=== PATIENT | male | born 1930 ===

== ENCOUNTER 2021-04-04 10:45 | Inpatient (IN) ==
[2021-04-04] MEDS ORDERED: ONDANSETRON 4 MG/2 ML VIAL ONE ×2 (11:27→16:30)
[2021-04-04] MEDS ORDERED: 0.9 % SODIUM CHLORIDE 250 ML IV SCH ×4 (11:30→20:00)
--- NOTE | 2021-04-04 11:39 | Emergency Department Note ---
Syncope HPI General Chief Complaint: Syncope Stated Complaint: Syncopal episode Time Seen by Provider: 04/04/21 10:52 Source: patient and EMS Mode of arrival: EMS History of Present Illness HPI Narrative: Patient is an 89-year-old gentleman who arrives emergency department by ambulance accompanied by his son-in-law complaining of syncope. History is provided by the patient and his son-in-law. He says he fell last night but cannot remember why. All he knows is he woke up lying on the ground with a chair on top of him. He laid on the ground for several hours but does not think he suffered any significant injuries. Currently, he feels very lightheaded and this is worse whenever he sits up. He also developed nausea and vomiting upon arrival to the emergency department. His son-in-law notes he had similar symptoms when he had gastrointestinal bleeding several years ago. He has not recently had any diarrhea or blood in his stool. He denies any associated abdominal pain. Related Data Home Medications Medication Instructions Recorded Confirmed atenolol 50 mg PO DAILY 04/04/21 04/04/21 isosorbide mononitrate 60 mg PO DAILY 04/04/21 04/04/21 lovastatin 40 mg PO QDAY 04/04/21 04/04/21 tamsulosin 0.8 mg PO DAILY 04/04/21 04/04/21 Allergies Allergy/AdvReac Type Severity Reaction Status Date / Time hydrocodone Allergy Unknown HIVES Verified 04/04/21 12:53 Review of Systems ROS ROS Narrative: Narrative: All systems ED: reviewed and negative except as stated. Constitutional: Denies fever and chills Cardiovascular: Denies chest pain Respiratory: Denies shortness of breath and cough PFSH Narrative Patient History Narrative: Patient is and lives by himself. Social History Smoking Status: Never smoker Alcohol Intake Frequency: does not drink Exam Narrative Narrative: I reviewed the vital signs. Gen -patient is awake and alert and in no acute distress. The patient is well groomed. He is actively vomiting dark red emesis. HEENT -there is a patch of ecchymosis over the patient's left temporal region without palpable underlying bony deformity. There is conjunctival pallor. Mucous membranes are dry. CV -S1-S2 regular rate and rhythm. Peripheral pulses are palpable. There is no JVD. Resp -breathing is nonlabored. Lungs are clear to auscultation bilaterally. T here is no cyanosis. GI - Abdomen is soft and nontender to palpation. There is no guarding or rebou nd tenderness. Derm -skin is warm and dry. There is no visible rash. MSK -present extremities are atraumatic. There is moderate tenderness to palpation of the mid lumbar region without any palpable underlying bony deformity. There is no tenderness to palpation of the cervical or thoracic spine. Psych -patient has appropriate affect. The patient does not appear internally stimulated. Neuro -patient answers questions appropriately with fluent speech. Patient moves all present extremities equally. Course Vital Signs Vital signs: Vital Signs Temperature 97.7 F 04/04/21 10:48 Pulse Rate 87 04/04/21 10:48 Respiratory Rate 18 04/04/21 10:48 Blood Pressure 108/62 04/04/21 10:48 Pulse Oximetry (%) 98 04/04/21 10:48 Temperature 97.7 F 04/04/21 10:48 Pulse Rate 90 04/04/21 14:47 Respiratory Rate 14 04/04/21 14:47 Blood Pressure 101/62 04/04/21 14:46 Pulse Oximetry (%) 97 04/04/21 14:47 MDM MDM Narrative Medical decision making narrative: Patient presents with generalized weakness and syncope. CT scans of the brain and lumbar spine do not reveal any traumatic findings. Given the patient's vomiting and dilated loops of large bowel noted by radiology staff while preparing for his lumbar spine CT, I obtained a CT of the abdomen and pelvis. This revealed severely distended large bowel consistent with a large bowel obstruction. I discussed the test results with the patient and his son. I also spoke with Dr. Beckford from general surgery. He will evaluate the patient in the emergency department. He would like type and screen for 2 units of packed red blood cells and initiate antibiotic therapy with Zosyn. Dr. Beckford evaluated the patient in person. 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 He plans to take the patient to the operating room for operative treatment. Lab Data Lab results reviewed: Yes I reviewed the patient's lab results. Result diagrams: 04/04/21 11:28 Labs: Lab Results 04/04/21 04/04/21 04/04/21 Range/Units 11:28 11:28 12:16 WBC 15.5 H (4.5-11.0) K/mcL RBC 3.05 L (4.63-6.08) M/mcL Hgb 9.9 L (13.7-17.5) g/dL Hct 30.0 L (40.1-51.0) % POC Hct 28 L (41-55) % MCV 98.4 (80.0-100.0) fL MCH 32.5 (26.0-34.0) pg MCHC 33.0 (31.0-36.0) g/dL RDW 13.3 (11.5-14.5) % Plt Count 154 (140-440) K/mcL MPV 9.8 (7.4-10.4) fL Neut % (Auto) 76.9 (38.0-78.0) % Lymph % (Auto) 17.0 (15.5-49.0) % [place] % (Auto) 5.8 (1.0-12.0) % Eos % (Auto) 0 (0.0-7.0) % Baso % (Auto) 0.3 (0.0-2.0) % Lymph # (Auto) 2.63 (1.50-4.80) K/mcL [place] # (Auto) 0.90 (0.10-0.90) K/mcL Eos # (Auto) 0 (0.00-0.70) K/mcL Baso # (Auto) 0.04 (0.00-0.30) K/mcL Absolute Neutrophils 11.91 H (1.80-8.00) K/mcL POC PT 16.6 H (11.9-14.5) sec POC INR 1.4 H (0.8-1.2) POC Sodium 143 (133-145) mEq/L POC Potassium 5.2 H (3.3-5.1) mEql/L POC Chloride 110 H (96-108) mEq/L POC Total CO2 22 (22-30) mmol/L POC BUN 63 H (6-20) mg/dL POC Creatinine 1.5 H (0.6-1.2) mg/dL POC Glucose 111 H (70-105) mg/dL POC WB Ioniz Calcium 1.19 (1.16-1.32) mmEq/L Total Creatine Kinase 115 (24-195) U/L ED POC Tests ED POC Tests: KATRIN - SARS Antigen Negative EKG Data EKG #1: EKG attestation: Yes I reviewed and interpreted this EKG. EKG results narrative: EKG performed at 11:11 AM: Atrial fibrillation, rate 88. Normal QRS and QTc duration. Normal QRS morphology. T waves are diffusely flattened. No ST segment deviation. No old EKG immediately available for comparison. EKG interpreted by me Discharge Plan Patient/Caregiver Discharge Instructions Pt seen by ADDING MACHINE OPERATOR/PA only: No Prescriptions: No Action lovastatin 40 mg Tablet 40 mg PO QDAY RF: 0 isosorbide mononitrate 60 mg tablet extended release 24 hr 60 mg PO DAILY RF: 0 tamsulosin 0.4 mg capsule 0.8 mg PO DAILY RF: 0 atenolol 50 mg tablet 50 mg PO DAILY RF: 0
[2021-04-04] MEDS ORDERED: ONDANSETRON 4 MG/2 ML VIAL IV ONE (11:41)
[2021-04-04 11:54] LABS: POC Blood Urea Nitrogen 63 mg/dL (6-20); POC CO2 22 mmol/L (22-30); POC Calcium, Ionized 1.19 mmEq/L (1.16-1.32); POC Chloride 110 mEq/L (96-108); POC Creatinine 1.5 mg/dL (0.6-1.2); POC Glucose, Random 111 mg/dL (70-105); POC Hematocrit 28 % (41-55); POC Potassium 5.2 mEql/L (3.3-5.1); POC Sodium 143 mEq/L (133-145)
[2021-04-04 12:16] LABS: Basophils # (Auto) 0.04 K/mcL (0.00-0.30); Basophils % (Auto) 0.3 % (0.0-2.0); Eosinophils # (Auto) 0 K/mcL (0.00-0.70); Eosinophils % (Auto) 0 % (0.0-7.0); Hemoglobin 9.9 g/dL (13.7-17.5); Lymphocytes # (Auto) 2.63 K/mcL (1.50-4.80); Mean Cell Volume 98.4 fL (80.0-100.0); Mean Platelet Volume 9.8 fL (7.4-10.4); Monocytes % (Auto) 5.8 % (1.0-12.0); Neutrophils % (Auto) 76.9 % (38.0-78.0); Platelet Count 154 K/mcL (140-440); RBC 3.05 M/mcL (4.63-6.08); Red Cell Distribution Width 13.3 % (11.5-14.5); WBC 15.5 K/mcL (4.5-11.0)
[2021-04-04 12:21] LABS: POC INR 1.4 (0.8-1.2); POC Pro Time 16.6 sec (11.9-14.5)
[2021-04-04] MEDS ORDERED: LACTATED RINGERS 1,000 ML IV ONE (12:25)
[2021-04-04 12:39] LABS: Creatine Kinase 115 U/L (24-195)
[2021-04-04] MEDS ORDERED: PIPERACILLIN SODIUM/TAZOBACTAM 4.5 GM in DEXTROSE 5% IN WATER 50 ML IV ONE (13:04)
--- NOTE | 2021-04-04 14:39 | Cat Scan Report ---
History: Multiple recent syncopal episodes and falls, patient takes a baby aspirin daily TECHNIQUE: The head was imaged without contrast in axial plane at 2.5 mm intervals. Sagittal and coronal reformats were created. The radiation exposure was limited using dose reduction technology. FINDINGS: There is moderate atrophy in the frontal lobes with milder atrophy throughout the remainder of the brain. There is no evidence of infarct, hemorrhage or mass effect. The ventricles are normal allowing for the atrophy. There is no abnormal extra-axial fluid collection. Bone windows show no skull fracture. There is a large densely calcified plaque in the right vertebral artery at the foramen magnum. No scalp hematoma is present. The visualized portions of the orbits and sinuses are normal. IMPRESSION: Moderate atrophy and no evidence of acute head injury Dr. Velez was called with the report at 12:15 Interpreted and Authenticated by: Luis Miguel Spangler 04/04/21
--- NOTE | 2021-04-04 14:50 | Cat Scan Report ---
History: Recent falls with syncopal episodes, vomiting coffee-ground emesis, diarrhea TECHNIQUE: The patient was imaged without contrast in axial plane at 2.5 mm intervals. Sagittal and coronal reformats were created. The radiation exposure was limited using dose reduction technology area FINDINGS: There is mild interstitial lung disease in both lung bases. This may be a combination of fibrosis and inflammation. No pleural effusion is present. There has been a prior sternotomy with coronary bypass surgery. The heart is mildly enlarged. Evaluation the abdominal organs without contrast is limited. The liver and spleen are normal in size and homogeneous. There is no apparent mass or inflammation in the pancreas. The adrenals are normal. There are several cysts in both kidneys. The largest is an exophytic cyst at the lower pole left kidney which measures 6.5 cm. No solid mass is identified. There is no kidney stone or hydronephrosis. Moderate amount calcified plaque is present along the wall of normal caliber abdominal aorta and iliac arteries. Inferior vena cava is normal. There is a large amount of fluid and ingested material within the stomach. The wall the stomach does not appear to be thickened the duodenum and small intestine are normal in caliber. The large intestine is very elongated and abnormally dilated. The transverse colon measures up to 14.5 cm in craniocaudal dimension. Large amount stool is present in the ascending colon. The descending colon is decompressed. The elongated sigmoid colon becomes dilated in the epigastrium and is difficult to clearly separate the distended sigmoid colon from the transverse colon. No twist is seen in the mesentery. The wall of the1 dilated and large intestine is not thickened or inflamed and there is no gas within the wall. No free intraperitoneal air or ascites are present. There is no abscess. No mass is seen on this nonenhanced study. Urinary bladder is normal. Prostate is mildly enlarged. Bone windows reveal mild arthritis throughout the thoracic and lumbar spine. There is no fracture or destructive bone lesion. IMPRESSION: Abnormally dilated large bowel in the epigastrium. This appears to be a combination of severely dilated transverse colon and moderately dilated and elongated sigmoid colon. Patient is at high risk of perforated bowel based upon the caliber of the large intestine. No mass is seen to explain the obstruction. This could be a volvulus. Toxic megacolon is possible but I would expect to see more thickening of the wall of the intestine. Dr. Velez was called with the report at 12:15 PM Interpreted and Authenticated by: Luis Miguel Spangler 04/04/21
--- NOTE | 2021-04-04 15:03 | General Surg History&Physical ---
HPI History of Present Illness Patient information: Note initiated : 04/04/21 at 2:57 pm Service Date, if different from initiated Date: [] Patient: Jericho Cotsa a 89 y/o M admitted on for Syncopal episode. Chief Complaint: [] Chief complaint: Cecal volvulus with colonic obstruction History of present illness: Mr. Costa is a 89 year old M admitted via the emergency room with findings of cecal volvulus with colonic obstruction and massively dilated cecum. The patient has had some type of intestinal problem for quite some time. He gives a history of having bowel obstruction a few years ago and underwent colonoscopy by Dr. Euceda. He had successful resolution of the volvulus of the descending colon by colonoscopy. His been stable in the interim. He has had regular bowel movements. He denies severe abdominal pain. He had nausea and vomiting in the emergency room but states that he feels better at this time. CT shows dilated stomach and some right colon. the patient and his son in law are counseled for extended right colectomy. Constitutional Constitutional: Present frequent falls, malaise and weight loss Cardiovascular Cardiovascular: Present lightheadedness and syncope; Absent chest pain, claudication and dyspnea on exertion Respiratory Respiratory: Present dyspnea on exertion Gastrointestinal Gastrointestinal: Present abdominal pain, belching, change in bowel habits, dyspepsia, heartburn and loose stools Genitourinary Genitourinary: change in urinary stream, difficulty urinating and nocturia Musculoskeletal Musculoskeletal: Present abnormal gait, arthralgias, back pain, muscle cramps and myalgias Integumentary Integumentary: Present new lesions and unusual bruising Neurological Neurological: Present abnormal hearing, dizziness and syncope; Absent tremor(s) and vertigo Psychiatric Psychiatric: Absent depression and mood swings Endocrine Endocrine: Present fatigue Hematologic/Lymphatic Hematologic/Lymphatic: Present easy bruising; Absent easy bleeding and lymphadenopathy Allergic/Immunologic Allergic/Immunologic: Absent tongue swelling, throat swelling, uticaria, wheezing and lip swelling PFSH PFSH All Active Problems (Updated 04/04/21 @ 15:18 by Laurel Beckford MD) Primary chronic pseudo-obstruction of colon (Acute) History of coronary artery disease (Acute) Cecal volvulus (Acute) Syncope (Acute) Medical History (Updated 04/04/21 @ 15:18 by Laurel Beckford MD) Coronary artery disease involving coronary bypass graft Social History (Updated 04/04/21 @ 15:14 by Laurel Beckford MD) household members: alone housing: house marital status: occupational status: retired physical activity: walking frequency: 3-4 times per week duration: 15-30 minutes/day smoking status: Never smoker alcohol intake frequency: does not drink substance use type: does not use MEDS/ALLERGIES Home Medications and Allergies Home Medications Medication Instructions Recorded Confirmed Type atenolol 50 mg PO DAILY 04/04/21 04/04/21 History isosorbide mononitrate 60 mg PO DAILY 04/04/21 04/04/21 History lovastatin 40 mg PO QDAY 04/04/21 04/04/21 History tamsulosin 0.8 mg PO DAILY 04/04/21 04/04/21 History Allergies Allergy/AdvReac Type Severity Reaction Status Date / Time hydrocodone Allergy Unknown HIVES Verified 04/04/21 12:53 Physical Examination Vital Signs Vital signs: Temp Pulse Resp BP Pulse Ox 97.7 F 90 14 101/62 97 04/04/21 10:48 04/04/21 14:47 04/04/21 14:47 04/04/21 14:46 04/04/21 14:47 General physical appearance General physical exam: no distress, moderate pain, cachectic and chronically ill Eyes Eye exam: PERRL and normal ocular movement ENT ENT exam: other (Edentulous) Head Head exam IM: Present atraumatic, normal inspection and normocephalic Head exam expanded IM: Present contusion Neck Neck exam: no masses, no bruits, trachea midline, no lymphadenopathy and no venous distension Cardiovascular Cardiovascular exam IM: Present normal rate and rhythm, RRR, +S1 and +S2 Respiratory Respiratory exam: normal expansion, normal respiratory effort and clear to auscultation Abdomen Abdomen: Present tender (Mild tenderness across upper abdomen), bowel sounds (high pitched) and distended Integumentary Integumentary: Present no rash, no growths and no abnormal pigmentation Neurologic Neurologic: Present normal coordination and normal sensation Musculoskeletal Musculoskeletal: Present normal gait and normal posture Psychiatric Psychiatric: Present oriented to time, oriented to person, oriented to place, speech is normal and memory intact Results Labs Result diagrams: 04/04/21 11:28 Labs: Abnormal lab results 04/04/21 04/04/2121 Range/Units 11:28 11:28 12:16 WBC 15.5 H (4.5-11.0) K/mcL RBC 3.05 L (4.63-6.08) M/mcL Hgb 9.9 L (13.7-17.5) g/dL Hct 30.0 L (40.1-51.0) % POC Hct 28 L (41-55) % Absolute Neutrophils 11.91 H (1.80-8.00) K/mcL POC PT 16.6 H (11.9-14.5) sec POC INR 1.4 H (0.8-1.2) POC Potassium 5.2 H (3.3-5.1) mEql/L POC Chloride 110 H (96-108) mEq/L POC BUN 63 H (6-20) mg/dL POC Creatinine 1.5 H (0.6-1.2) mg/dL POC Glucose 111 H (70-105) mg/dL All other labs normal. A/P Assessment and plan (1) Primary chronic pseudo-obstruction of colon: Status: Acute (2) Cecal volvulus: Status: Acute (3) History of coronary artery disease: Status: Acute (4) Syncope: Status: Acute Narrative A/P Narrative: Patient and his son-in-law are counseled for urgent extended colectomy with primary anastomosis this will be performed later today Time Spent With Patient Time: Total time spent is greater than 50% in coordination of care (as documented) at patient's floor/unit and/or counseling patient:
--- NOTE | 2021-04-04 15:18 | XRay Report ---
HISTORY: Preop for bowel obstruction FINDINGS: Interstitial fibrosis is present in both lungs. This has progressed since a prior x-ray done on 01/27/13. No consolidating infiltrate is present. There is no mass. The heart is mildly enlarged and has increased in size since 2012. The pulmonary vessels, best seen in the upper lobes appear normal. There has been a prior sternotomy performed. There are several abnormally dilated loops of bowel in the epigastrium. No free intraperitoneal air is present. IMPRESSION: Moderate pulmonary fibrosis and mild cardiomegaly Interpreted and Authenticated by: Luis Miguel Spangler 04/04/21
[2021-04-04 15:22] LABS: Appearance,Urine CLEAR (Clear); Bilirubin,Urine Negative (Negative); Color,Urine YELLOW; Culture Indicated,Urine No; Glucose,Urine (UA) Negative (Negative); Ketones,Urine 20 mg/dL (Negative); Leukocyte Esterase,Urine Negative /uL (Negative); Mucus,Urine FEW /hpf; Nitrate,Urine Negative (Negative); Protein,Urine Negative (Negative); Specific Gravity,Urine 1.021 (1.000-1.035); Urine Blood Negative (Negative); Urine Hyaline Cast 3 /lph (0-2); Urine RBC < 1 /hpf (0-3); Urine Squamous Epithelial Cell 0 /hpf (0-4); Urine WBC 1 /hpf (0-4); Urobilinogen,Urine Negative
[2021-04-04] MEDS ORDERED: SUGAMMADEX SODIUM 200 MG/2 ML VIAL IV ONE (16:30)
[2021-04-04] MEDS ORDERED: ROCURONIUM 10 MG/ML ML IV ONE (16:30)
[2021-04-04] MEDS ORDERED: EPINEPHrine 1 MG/ML AMPUL ONE (16:30)
[2021-04-04] MEDS ORDERED: SUCCINYLCHOLINE 20 MG/ML ML IV ONE (16:30)
[2021-04-04] MEDS ORDERED: GLYCOPYRROLATE 0.2 MG/ML VIAL IV ONE (16:30)
[2021-04-04] MEDS ORDERED: fentaNYL 250 MCG/5 ML VIAL IV ONE (16:30)
[2021-04-04] MEDS ORDERED: MAGNESIUM SULFATE 2 GM/50 ML BAG IV ONE (16:30)
[2021-04-04] MEDS ORDERED: KETAMINE 50 MG/ML Syringe (ANEST) IV ONE (16:30)
[2021-04-04] MEDS ORDERED: LIDOCAINE HCL/PF 100 MG/5 ML SYRINGE IV ONE (16:30)
[2021-04-04] MEDS ORDERED: DEXAMETHASONE 10 MG/ML VIAL ONE (16:30)
[2021-04-04] MEDS ORDERED: PROPOFOL 200 MG/20 ML VIAL IV ONE (16:30)
[2021-04-04] MEDS ORDERED: PHENYLephrine 1 MG/10 ML SYRINGE (ANEST) ONE (16:30)
[2021-04-04] MEDS ORDERED: ACETAMINOPHEN 1,000 MG/100 ML BAG IV ONE (18:41)
[2021-04-04] MEDS ORDERED: METHOCARBAMOL 1,000 MG/10 ML VIAL IV PRN (18:41)
[2021-04-04] MEDS ORDERED: ONDANSETRON 4 MG/2 ML VIAL IV PRN ×3 (18:41→20:00)
[2021-04-04] MEDS ORDERED: LACTATED RINGERS 250 ML IV PRN (18:41)
[2021-04-04] MEDS ORDERED: fentaNYL 100 MCG/2 ML VIAL IV PRN (18:41)
[2021-04-04] MEDS ORDERED: IPRATROPIUM/ALBUTEROL 3 ML AMPUL.NEB NEB PRN (18:41)
[2021-04-04] MEDS ORDERED: BENZOCAINE/MENTHOL 1 LOZENGE PO PRN (18:41)
[2021-04-04] MEDS ORDERED: FLUMAZENIL 0.1 MG/ML ML IV PRN (18:41)
[2021-04-04] MEDS ORDERED: METOPROLOL TARTRATE 5 MG/5 ML VIAL IV PRN (18:41)
[2021-04-04] MEDS ORDERED: LABETALOL 5 MG/ML ML IV PRN (18:41)
[2021-04-04] MEDS ORDERED: NALOXONE HCL 0.4 MG/ML VIAL IV PRN (18:41)
[2021-04-04] MEDS ORDERED: LACTATED RINGERS 1,000 ML IV SCH (18:45)
--- NOTE | 2021-04-04 19:15 | Brief Operative Note ---
Brief Operative Note Date of procedure: 04/04/21 Pre-op diagnosis: CHRONIC COLONIC PSEUDOOBSTRUCTION WITH RIGHT COLON AND TRANS VERSE COLON VOL Post-op diagnosis: other (COLONIC PSEUDOOBSTRUCTION WITH RIGHT COLON AND TRANSVERSE COLON VOLVULUS) Procedure: SUBTOTAL COLECTOMY WITH ILEO-SIGMOID ANASTOMOSIS Grafts/Implants: No Anesthesia: GETA Findings: DILATED COLON FROM CECUM TO DISTAL SIGMOID COLON WITH VOLVULUS INVOLVING RIGHT ,TRANSVERSE AND DESCENDING COLON AND MILD DILATIONOF DISTAL SIGMOID AND RECTUM Complications: none Surgeon: Laurel Beckford Estimated blood loss (cc): 150 Specimens Removed/Pathology: other (SUBTOTAL COLON DOWN TO MID SIGMOID) Condition: stable Disposition: PACU
[2021-04-04] MEDS ORDERED: ACETAMINOPHEN 1,000 MG/100 ML BAG IV SCH (20:00)
[2021-04-04] MEDS: 0.9 % SODIUM CHLORIDE 1,000 ML IV SCH (20:08)
[2021-04-04] MEDS: 0.9 % SODIUM CHLORIDE 10 ML SYRINGE IV SCH (20:09)
[2021-04-04] MEDS: PIPERACILLIN SODIUM/TAZOBACTAM 2.25 GM in DEXTROSE 5% IN WATER 50 ML IV SCH (23:40)
[2021-04-04] MEDS: HYDROmorphone 0.5 MG/0.5 ML SYRINGE IV PRN (23:48)
[2021-04-05] MEDS: ACETAMINOPHEN 1,000 MG/100 ML BAG IV SCH ×4 (00:13→21:42)
[2021-04-05] MEDS: 0.9 % SODIUM CHLORIDE 1,000 ML IV SCH ×3 (05:09→18:52)
[2021-04-05] MEDS: PIPERACILLIN SODIUM/TAZOBACTAM 2.25 GM in DEXTROSE 5% IN WATER 50 ML IV SCH ×4 (05:29→23:26)
[2021-04-05] MEDS: 0.9 % SODIUM CHLORIDE 10 ML SYRINGE IV SCH ×4 (05:30→23:28)
[2021-04-05 06:51] LABS: Hematocrit 23.4 % (40.1-51.0); Hemoglobin 7.9 g/dL (13.7-17.5); Mean Cell Volume 96.7 fL (80.0-100.0); Mean Corpuscular HGB Conc 33.8 g/dL (31.0-36.0); Mean Platelet Volume 9.8 fL (7.4-10.4); Platelet Count 129 K/mcL (140-440); RBC 2.42 M/mcL (4.63-6.08); Red Cell Distribution Width 13.7 % (11.5-14.5)
[2021-04-05 06:58] LABS: ALT/SGPT 9 U/L (<40); AST/SGOT 24 U/L (<40); Albumin 2.7 gm/dL (3.2-5.2); Albumin/Globulin Ratio 1.2 (1.0-2.3); Alkaline Phosphatase 63 U/L (39-117); Bilirubin,Direct 0.2 mg/dL (<0.3); Bilirubin,Total 0.5 mg/dL (0.1-1.0); Blood Urea Nitrogen 49 mg/dL (8-23); Calcium 7.9 mg/dL (8.6-10.4); Carbon Dioxide 20 mmol/L (22-30); Chloride 111 mmol/L (96-108); Globulin 2.3 gm/dL (2.2-3.7); Glomerular Filtration Rate 53; Glucose 151 mg/dL (70-105); Lactate Dehydrogenase 213 U/L (135-225); Phosphorous 2.6 mg/dL (2.5-4.5); Triglycerides 81 mg/dL (<150); Uric Acid 4.3 mg/dL (2.5-8.0)
--- NOTE | 2021-04-05 09:08 | EKG ---
[facility] Test Date: 2021-04-04 Pat Name: Jericho Costa Department: ED Room: Gender: Male [employer] Professional: : 1930 Requested By: Jorge Velez Order Number: [id number] Reading MD: Stef Reveles Measurements Intervals [place] Rate: 88 P: MI: QRS: -10 QRSD: 96 T: 199 QT: 376 QTc: 455 Interpretive Statements ATRIAL FIBRILLATION, V-RATE 68-101 NONSPECIFIC T ABNORMALITIES, DIFFUSE LEADS Electronically Signed On 04-05-2021 9:07:45 PDT by Stef Reveles /store/M0/[id number]/[email or web address]/[id number].pdf
[2021-04-05 09:24] LABS: Hypochromasia FEW (None Seen); Lymphocytes % 3 % (15-49); Platelet Estimate DECREASED (Normal); RBC Morphology ABNORMAL (Normal); Segmented Neutrophils % 97 % (38-78)
[2021-04-05] MEDS: HYDROmorphone 0.5 MG/0.5 ML SYRINGE IV PRN ×4 (10:57→23:39)
[2021-04-05] MEDS ORDERED: 0.9 % SODIUM CHLORIDE 250 ML IV SCH (11:30)
[2021-04-05] MEDS ORDERED: fentaNYL 100 MCG/2 ML VIAL IV PRN (12:10)
--- NOTE | 2021-04-05 15:26 | General Surgery Progress Note ---
SUBJECTIVE Subjective Patient information: Note initiated : 04/05/21 at 3:21 pm Service Date, if different from initiated Date: [] Patient: Jericho Costa 89 y/o M admitted on 04/04/21 for Syncopal episode. Chief Complaint: [] Principal diagnosis: Colonic pseudoobstruction with volvulus Interval history: Patient has been clinically stable. Vital signs are good. He is somewhat pale and his hemoglobin is down to 7.9. His pain is controlled. He denies nausea and vomiting. BUN 49, creatinine 1.2, white blood count 20,000, hemoglobin 7.9, hematocrit 23.4, platelets 129,000. Constitutional Vitals: Vital Signs Temp Pulse Resp BP Pulse Ox 98.3 F 68 18 124/63 99 04/05/21 12:00 04/05/21 12:00 04/05/21 12:00 04/05/21 08:00 04/05/21 12:00 Period Temp Pulse Resp BP Sys/Farias Pulse Ox Last 24 Hr 97.2 F-99.8 F 64-88 9-20 79-127/38-83 94-100 Intake and Output 04/05/21 04/05/21 04/05/21 05:59 13:59 21:59 Intake Total 1150 1025 Output Total 600 Balance 550 1025 Weight 172 lb 6.4 oz Patient Weight 04/06/21 05:59 Weight 172 lb 6.4 oz Intake & Output: Intake & Output 04/05/21 04/05/21 04/05/21 05:59 13:59 21:59 Intake Total 1150 1025 Output Total 600 Balance 550 1025 Weight 172 lb 6.4 oz Intake: IV 1150 1025 Sodium Chloride 0.9% 1,000 ml @ 1000 875 125 mls/hr IV .Q8H DANE Rx#: [id number] Zosyn 2.25 gm In Dextrose 5% in 50 50 Water 50 ml @ 100 mls/hr IV Q6H DANE Rx#:[id number] Output: Gastric Drainage 100 NG/OG 100 Urine Catheter Amount 500 Other: Urine Appearance Clear Urine Color Dark Yellow Head Head exam: Present atraumatic and normal inspection Eye Eye exam: Present EOMI, normal appearance and PERRL ENT ENT exam: Present mucous membranes dry and normal external ear exam Additional comments: Mucosa is dry Neck Neck exam: Present full ROM and normal inspection; Absent tenderness Respiratory Respiratory exam: Present normal respiratory exam and CTAB Cardiovascular Cardiovascular exam: Present normal rate and rhythm, RRR, +S1 and +S2; Absent gallop and JVD GI/Abdominal GI/Abdominal exam: Present normal bowel sounds, soft and hypoactive bowel sounds Additional comments: Incision is healing nicely Extremities Exam Extremities exam: Present full ROM and neurovascular intact; Absent pedal edema Back Exam Back exam: Present full ROM and normal inspection Neurological Exam Neurological exam: Present alert and oriented X3 Psychiatric Psychiatric exam: Present normal affect and normal mood A/P Assessment and plan (1) Primary chronic pseudo-obstruction of colon: Status: Acute (2) Cecal volvulus: Status: Acute (3) History of coronary artery disease: Status: Acute (4) Postoperative anemia due to acute blood loss: Status: Acute Narrative A/P Narrative: Prerenal azotemia is improved Will transfuse 2 units of packed red cells Continue IV antibiotics Check CBC and inpatient panel in the morning Time Spent With Patient Time: Total time spent is greater than 50% in coordination of care (as documented) at patient's floor/unit and/or counseling patient:
[2021-04-06] MEDS: ACETAMINOPHEN 1,000 MG/100 ML BAG IV SCH ×4 (01:29→19:46)
[2021-04-06] MEDS: HYDROmorphone 0.5 MG/0.5 ML SYRINGE IV PRN ×4 (02:46→16:01)
[2021-04-06] MEDS: 0.9 % SODIUM CHLORIDE 1,000 ML IV SCH ×3 (04:14→23:09)
[2021-04-06] MEDS: 0.9 % SODIUM CHLORIDE 10 ML SYRINGE IV SCH ×3 (06:24→22:00)
[2021-04-06] MEDS: PIPERACILLIN SODIUM/TAZOBACTAM 2.25 GM in DEXTROSE 5% IN WATER 50 ML IV SCH ×4 (06:24→23:08)
[2021-04-06 07:12] LABS: Basophils # (Auto) 0.02 K/mcL (0.00-0.30); Basophils % (Auto) 0.2 % (0.0-2.0); Eosinophils # (Auto) 0 K/mcL (0.00-0.70); Eosinophils % (Auto) 0 % (0.0-7.0); Hematocrit 30.9 % (40.1-51.0); Hemoglobin 10.4 g/dL (13.7-17.5); Lymphocytes % (Auto) 26.1 % (15.5-49.0); Mean Cell Volume 91.4 fL (80.0-100.0); Mean Corpuscular HGB Conc 33.7 g/dL (31.0-36.0); Mean Platelet Volume 9.7 fL (7.4-10.4); Monocytes # (Auto) 0.53 K/mcL (0.10-0.90); Monocytes % (Auto) 4.5 % (1.0-12.0); Neutrophils % (Auto) 69.2 % (38.0-78.0); Platelet Count 113 K/mcL (140-440); RBC 3.38 M/mcL (4.63-6.08); Red Cell Distribution Width 18.1 % (11.5-14.5); WBC 11.9 K/mcL (4.5-11.0)
[2021-04-06 07:34] LABS: ALT/SGPT 12 U/L (<40); AST/SGOT 28 U/L (<40); Albumin 2.8 gm/dL (3.2-5.2); Albumin/Globulin Ratio 1.1 (1.0-2.3); Alkaline Phosphatase 64 U/L (39-117); Bilirubin,Direct 0.3 mg/dL (<0.3); Bilirubin,Total 0.6 mg/dL (0.1-1.0); Blood Urea Nitrogen 37 mg/dL (8-23); Calcium 8.2 mg/dL (8.6-10.4); Carbon Dioxide 21 mmol/L (22-30); Chloride 110 mmol/L (96-108); Globulin 2.6 gm/dL (2.2-3.7); Glomerular Filtration Rate 59; Glucose 97 mg/dL (70-105); Lactate Dehydrogenase 241 U/L (135-225); Phosphorous 1.9 mg/dL (2.5-4.5); Triglycerides 108 mg/dL (<150); Uric Acid 3.1 mg/dL (2.5-8.0)
--- NOTE | 2021-04-06 13:08 | General Surgery Progress Note ---
SUBJECTIVE Subjective Patient information: Note initiated : 04/06/21 at 1:04 pm Service Date, if different from initiated Date: [] Patient: Jericho Costa 89 y/o M admitted on 04/04/21 for Syncopal episode. Chief Complaint: [] Principal diagnosis: Colonic pseudoobstruction with volvulus Interval history: Patient continues to improve. He is still weak and is more alert today and answers questions appropriately. Vital signs are stable. White blood count 11.9, hemoglobin 10.4, hematocrit 30.9, platelets 113,000, potassium 4.1, BUN 37, creatinine 1.1, phosphorus 1.9 Constitutional Vitals: Vital Signs Temp Pulse Resp BP Pulse Ox 97.7 F 69 12 142/76 96 04/06/21 12:19 04/06/21 12:19 04/06/21 08:20 04/06/21 12:19 04/06/21 12:19 Period Temp Pulse Resp BP Sys/Farias Pulse Ox Last 24 Hr 97.0 F-98.3 F 63-70 12-19 105-150/62-79 95-99 Intake and Output 04/05/21 04/06/21 04/06/21 21:59 05:59 13:59 Intake Total 275 1250 150 Output Total 1075 1250 575 Balance -800 0 -425 Weight 175 lb 14.4 oz Intake & Output: Intake & Output 04/05/21 04/06/21 04/06/21 21:59 05:59 13:59 Intake Total 275 1250 150 Output Total 1075 1250 575 Balance -800 0 -425 Weight 175 lb 14.4 oz Intake: IV 275 1250 150 Sodium Chloride 0.9% 1,000 ml @ 125 1000 125 mls/hr IV .Q8H DANE Rx#: [id number] Zosyn 2.25 gm In Dextrose 5% in 50 50 50 Water 50 ml @ 100 mls/hr IV Q6H DANE Rx#:[id number] Output: Gastric Drainage 150 300 NG/OG 150 300 Urine Catheter Amount 607 327 575 Other: Urine Appearance Clear Clear Clear Urine Color Bright Yellow Dark Yellow Bright Yellow Uretheral (Valerio) Bright Yellow Bright Yellow Eye Eye exam: Present EOMI, normal appearance and PERRL ENT ENT exam: Present mucous membranes dry and normal external ear exam Additional comments: Mucosa is dry; edentulous Neck Neck exam: Present full ROM and normal inspection; Absent tenderness Respiratory Respiratory exam: Present normal respiratory exam and CTAB Cardiovascular Cardiovascular exam: Present normal rate and rhythm, RRR, +S1 and +S2; Absent gallop and JVD GI/Abdominal GI/Abdominal exam: Present normal bowel sounds, soft and hypoactive bowel sounds Additional comments: Incision is healing nicely Extremities Exam Extremities exam: Present full ROM and neurovascular intact; Absent pedal edema Neurological Exam Neurological exam: Present alert and oriented X3 Psychiatric Psychiatric exam: Present normal affect and normal mood A/P Assessment and plan (1) Primary chronic pseudo-obstruction of colon: Status: Acute (2) Cecal volvulus: Status: Acute (3) History of coronary artery disease: Status: Acute (4) Postoperative anemia due to acute blood loss: Status: Acute Narrative A/P Narrative: Potassium phosphate rider Out of bed to chair and to ambulate with physical therapy Patient will need SNF and rehab at time of discharge Time Spent With Patient Time: Total time spent is greater than 50% in coordination of care (as documented) at patient's floor/unit and/or counseling patient:
[2021-04-06] MEDS ORDERED: POTASSIUM PHOSPHATE 40 MEQ in DEXTROSE 5% IN WATER 500 ML IV ONE (13:30)
[2021-04-07] MEDS: ACETAMINOPHEN 1,000 MG/100 ML BAG IV SCH ×4 (00:03→19:18)
[2021-04-07] MEDS: HYDROmorphone 0.5 MG/0.5 ML SYRINGE IV PRN ×2 (00:39→21:57)
[2021-04-07] MEDS: 0.9 % SODIUM CHLORIDE 1,000 ML IV SCH ×3 (03:12→19:19)
[2021-04-07] MEDS: PIPERACILLIN SODIUM/TAZOBACTAM 2.25 GM in DEXTROSE 5% IN WATER 50 ML IV SCH ×3 (05:17→17:40)
[2021-04-07] MEDS: 0.9 % SODIUM CHLORIDE 10 ML SYRINGE IV SCH ×3 (05:18→21:58)
[2021-04-07 07:28] LABS: ALT/SGPT 12 U/L (<40); AST/SGOT 25 U/L (<40); Albumin 2.5 gm/dL (3.2-5.2); Alkaline Phosphatase 65 U/L (39-117); Bilirubin,Direct 0.3 mg/dL (<0.3); Bilirubin,Total 0.6 mg/dL (0.1-1.0); Blood Urea Nitrogen 20 mg/dL (8-23); Calcium 7.8 mg/dL (8.6-10.4); Carbon Dioxide 19 mmol/L (22-30); Chloride 113 mmol/L (96-108); Globulin 2.5 gm/dL (2.2-3.7); Glomerular Filtration Rate 76; Glucose 95 mg/dL (70-105); Lactate Dehydrogenase 210 U/L (135-225); Phosphorous 1.7 mg/dL (2.5-4.5); Triglycerides 92 mg/dL (<150); Uric Acid 2.7 mg/dL (2.5-8.0)
[2021-04-07 07:37] LABS: Basophils # (Auto) 0.02 K/mcL (0.00-0.30); Basophils % (Auto) 0.3 % (0.0-2.0); Eosinophils # (Auto) 0 K/mcL (0.00-0.70); Eosinophils % (Auto) 0 % (0.0-7.0); Hematocrit 30.6 % (40.1-51.0); Lymphocytes % (Auto) 42.8 % (15.5-49.0); Mean Cell Volume 93.6 fL (80.0-100.0); Mean Corpuscular HGB Conc 32.7 g/dL (31.0-36.0); Mean Platelet Volume 9.7 fL (7.4-10.4); Monocytes # (Auto) 0.34 K/mcL (0.10-0.90); Monocytes % (Auto) 5.8 % (1.0-12.0); Neutrophils % (Auto) 51.1 % (38.0-78.0); Platelet Count 118 K/mcL (140-440); RBC 3.27 M/mcL (4.63-6.08); Red Cell Distribution Width 17.2 % (11.5-14.5); WBC 5.8 K/mcL (4.5-11.0)
--- NOTE | 2021-04-07 12:55 | Surgical Pathology Report ---
Histology Microscopic Diagnosis Specimen A- COLON, TERMINAL ILEUM AND OMENTUM, SUBTOTAL COLECTOMY AND OMENTECTOMY: --- COLON AND TERMINAL ILEUM: -- TWO SEGMENTS OF DILATED COLON CONSISTENT WITH CLINICAL HISTORY OF VOLVULUS. -- END MARGINS VIABLE. --- OMENTUM: -- NO DIAGNOSTIC ALTERATIONS. 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 Gross Description Received in formalin labeled subtotal colon, is a 150 cm long segment of colon with attached omentum. The colon varies in diameter from from 4 to 10.5 cm. Each end is stapled and the end margins are undesignated. One end margin is narrowed and may represent terminal ileum with adjacent dilated cecum. No appendix is seen. A mild amount of mesenteric adipose tissue is attached. The attached omentum is 43.5 x 10 x 1.5 cm and consists of unremarkable edmonds-yellow, lobulated adipose tissue. The serosal surface of the colon is edmonds-pink, smooth and glistening. A 23 cm long segment of colon dilated up to 10.5 cm starts at the end of the colon adjacent to the possible terminal ileum. Immediately adjacent to this segment is a 20 cm long portion of colon which is not dilated. The remaining colon beyond the undilated colon extending to the opposite end margin is dilated to 10.5 cm. The specimen is opened along its length to reveal a edmonds brown, muddy and pasty fecal material. The mucosa in the dilated regions is flattened and the wall is on average 0.2 cm thick. The mucosa in the non-dilated region has an unremarkable plicated pattern with a wall that is on average 0.4 cm thick. No mucosal mass lesion or polyps are identified. Scattered small lymph nodes, up to 0.5 cm in greatest dimension, are identified within the mesenteric fat. Film Examiner sections are submitted as follows: A1 - end margins; A2 - shorter segment of dilated colon, random; A3 - nondilated segment of colon, random; A4-A5 - longer segment of dilated colon, random; A6 - random omentum; A7 - five intact candidate lymph nodes. (DMT:jose miguel) Electronically Signed Stef Westbrook MD, FCAP Electronically Signed 04/07/2021 12:54
--- NOTE | 2021-04-07 13:15 | General Surgery Progress Note ---
SUBJECTIVE Subjective Patient information: Note initiated : 04/07/21 at 1:08 pm Service Date, if different from initiated Date: [] Patient: Jericho Costa 89 y/o M admitted on 04/04/21 for Syncopal episode. Chief Complaint: [] Principal diagnosis: Colonic pseudoobstruction with volvulus Interval history: patient is clinically stable. he denies nausea.His abdominal pain is controlled with present analgesics.No flatus so far .WBC IS 5.8,HGB10,HCT30.6,K 4.1,BUN 20,CR0.9,PHOS1.7. Constitutional Vitals: Vital Signs Temp Pulse Resp BP Pulse Ox 98.4 F 88 15 125/74 95 04/07/21 11:34 04/07/21 11:34 04/07/21 11:34 04/07/21 11:34 04/07/21 11:34 Period Temp Pulse Resp BP Sys/Farias Pulse Ox Last 24 Hr 97.3 F-99.1 F 69-88 12-22 115-139/66-78 93-99 Intake and Output 04/06/21 04/07/21 04/07/21 21:59 05:59 13:59 Intake Total 1759.0909 1200 1100 Output Total 600 1050 Balance 1159.0909 150 1100 Weight 174 lb 1 oz Intake & Output: Intake & Output 04/06/21 04/07/21 04/07/21 21:59 05:59 13:59 Intake Total 1759.0909 1200 1100 Output Total 600 1050 Balance 1159.0909 150 1100 Weight 174 lb 1 oz Intake: IV 1759.0909 1200 1100 Sodium Chloride 0.9% 1,000 ml @ 1000 1000 1000 125 mls/hr IV .Q8H D[facility] Rx#: [id number] Zosyn 2.25 gm In Dextrose 5% in 50 100 Water 50 ml @ 100 mls/hr IV Q6H [facility] Rx#:[id number] Potassium Phosphate 40 Meq In 509.0909 Dextrose 5% in Water 500 ml @ 127.273 mls/hr IV ONCE ONE Rx#: [id number] Tube Feeding 0 Output: Gastric Drainage 50 350 NG/OG 50 350 Urine Catheter Amount 550 700 Other: Urine Appearance Clear Clear Uretheral (Valerio) Clear Clear Urine Color Dark Yellow Dark Yellow Uretheral (Valerio) Dark Yellow Dark Yellow Urine Odor Strong ENT ENT exam: Present mucous membranes dry Neck Neck exam: Present full ROM and normal inspection Respiratory Respiratory exam: Present normal respiratory exam and CTAB Cardiovascular Cardiovascular exam: Present normal rate and rhythm, irregular rhythm, +S1 and +S2; Absent JVD GI/Abdominal GI/Abdominal exam: Present soft, diminished bowel sounds, distended (MILD DISTENTION) and tenderness (MILD INCISIONAL TENDERNESS) Extremities Exam Extremities exam: Present full ROM and neurovascular intact; Absent pedal edema Neurological Exam Neurological exam: Present alert and oriented X3 Psychiatric Psychiatric exam: Present normal affect and normal mood A/P Assessment and plan (1) Primary chronic pseudo-obstruction of colon: Status: Acute (2) Cecal volvulus: Status: Acute (3) Postoperative anemia due to acute blood loss: Status: Acute Narrative A/P Narrative: CONTINUE ON PRESENT THERAPY REPLACE K PHOSPHATE START PANTOPRAZOLE Time Spent With Patient Time: Total time spent is greater than 50% in coordination of care (as documented) at patient's floor/unit and/or counseling patient:
[2021-04-07] MEDS ORDERED: POTASSIUM PHOSPHATE 40 MEQ in DEXTROSE 5% IN WATER 500 ML IV ONE (13:30)
[2021-04-07] MEDS: PANTOPRAZOLE 40 MG VIAL IV SCH (17:40)
[2021-04-08] MEDS: PIPERACILLIN SODIUM/TAZOBACTAM 2.25 GM in DEXTROSE 5% IN WATER 50 ML IV SCH ×4 (00:10→18:15)
[2021-04-08] MEDS: ACETAMINOPHEN 1,000 MG/100 ML BAG IV SCH ×4 (01:22→19:47)
[2021-04-08] MEDS: 0.9 % SODIUM CHLORIDE 1,000 ML IV SCH ×3 (04:56→21:52)
[2021-04-08] MEDS: 0.9 % SODIUM CHLORIDE 10 ML SYRINGE IV SCH ×3 (05:42→21:53)
[2021-04-08] MEDS: HYDROmorphone 0.5 MG/0.5 ML SYRINGE IV PRN ×2 (05:46→22:48)
[2021-04-08] MEDS: PANTOPRAZOLE 40 MG VIAL IV SCH ×2 (07:08→18:13)
[2021-04-08 08:25] LABS: Basophils # (Auto) 0.02 K/mcL (0.00-0.30); Basophils % (Auto) 0.3 % (0.0-2.0); Eosinophils # (Auto) 0.43 K/mcL (0.00-0.70); Eosinophils % (Auto) 6.2 % (0.0-7.0); Hematocrit 35.1 % (40.1-51.0); Hemoglobin 11.7 g/dL (13.7-17.5); Lymphocytes # (Auto) 2.28 K/mcL (1.50-4.80); Lymphocytes % (Auto) 32.9 % (15.5-49.0); Mean Cell Volume 93.1 fL (80.0-100.0); Mean Corpuscular HGB Conc 33.3 g/dL (31.0-36.0); Mean Platelet Volume 9.3 fL (7.4-10.4); Monocytes # (Auto) 0.41 K/mcL (0.10-0.90); Monocytes % (Auto) 5.9 % (1.0-12.0); Neutrophils % (Auto) 54.7 % (38.0-78.0); Platelet Count 146 K/mcL (140-440); RBC 3.77 M/mcL (4.63-6.08); Red Cell Distribution Width 16.4 % (11.5-14.5); WBC 6.9 K/mcL (4.5-11.0)
[2021-04-08 08:30] LABS: ALT/SGPT 14 U/L (<40); AST/SGOT 30 U/L (<40); Albumin 2.8 gm/dL (3.2-5.2); Albumin/Globulin Ratio 0.9 (1.0-2.3); Alkaline Phosphatase 113 U/L (39-117); Bilirubin,Direct 0.4 mg/dL (<0.3); Bilirubin,Total 0.8 mg/dL (0.1-1.0); Blood Urea Nitrogen 13 mg/dL (8-23); Calcium 8.6 mg/dL (8.6-10.4); Carbon Dioxide 22 mmol/L (22-30); Chloride 108 mmol/L (96-108); Globulin 3.1 gm/dL (2.2-3.7); Glomerular Filtration Rate 76; Glucose 91 mg/dL (70-105); Lactate Dehydrogenase 240 U/L (135-225); Phosphorous 2.2 mg/dL (2.5-4.5); Triglycerides 95 mg/dL (<150); Uric Acid 2.5 mg/dL (2.5-8.0)
[2021-04-08] MEDS: METOCLOPRAMIDE 10 MG/2 ML VIAL IV SCH ×2 (12:12→18:14)
--- NOTE | 2021-04-08 12:48 | General Surgery Progress Note ---
SUBJECTIVE Subjective Patient information: Note initiated : 04/08/21 at 12:46 pm Service Date, if different from initiated Date: [] Patient: Jericho Costa 89 y/o M admitted on 04/04/21 for Syncopal episode. Chief Complaint: [] Principal diagnosis: Colonic pseudoobstruction with volvulus Interval history: Patient remained stable throughout the night. He does not have any cold or respiratory difficulty. Vital signs are stable. Blood pressure is controlled. His pain is controlled. He has not had any flatus or bowel movement yet. He does not have abdominal distention and nasogastric fluid output is minimal. Constitutional Vitals: Vital Signs Temp Pulse Resp BP Pulse Ox 98 F 92 H 15 127/67 98 04/08/21 12:00 04/08/21 12:00 04/08/21 12:00 04/08/21 12:00 04/08/21 12:00 Period Temp Pulse Resp BP Sys/Farias Pulse Ox Last 24 Hr 97.5 F-98.2 F 66-92 15-20 118-134/67-82 94-98 Intake and Output 04/07/21 04/08/21 04/08/21 21:59 05:59 13:59 Intake Total 1146 132.2940 150 Output Total 1550 1000 Balance -44 -696.9091 150 Weight 173 lb 8 oz Intake & Output: Intake & Output 04/07/21 04/08/21 04/08/21 21:59 05:59 13:59 Intake Total 5655 136.7228 150 Output Total 1550 1000 Balance -44 -696.9091 150 Weight 173 lb 8 oz Intake: IV 2682 754.3869 150 Sodium Chloride 0.9% 1,000 ml @ 1000 125 mls/hr IV .Q8H [facility] Rx#: [id number] Zosyn 2.25 gm In Dextrose 5% in 50 50 50 Water 50 ml @ 100 mls/hr IV Q6H [facility] Rx#:[id number] Potassium Phosphate 40 Meq In 482 802.5548 Dextrose 5% in Water 500 ml @ 127.273 mls/hr IV ONCE ONE Rx#: [id number] Output: Gastric Drainage 800 250 NG/OG 800 250 Urine Catheter Amount 750 750 Other: Urine Appearance Clear Uretheral (Valerio) Clear Urine Color Bright Yellow Uretheral (Valerio) Dark Yellow ENT ENT exam: Present mucous membranes dry Neck Neck exam: Present full ROM and normal inspection Respiratory Respiratory exam: Present normal respiratory exam and CTAB Cardiovascular Cardiovascular exam: Present normal rate and rhythm, irregular rhythm, +S1 and +S2; Absent JVD GI/Abdominal GI/Abdominal exam: Present soft, diminished bowel sounds, distended (MILD DISTENTION) and tenderness (MILD INCISIONAL TENDERNESS) Extremities Exam Extremities exam: Present full ROM and neurovascular intact; Absent pedal edema Back Exam Back exam: Present full ROM and normal inspection Psychiatric Psychiatric exam: Present normal affect and normal mood A/P Assessment and plan (1) Primary chronic pseudo-obstruction of colon: Status: Acute (2) Cecal volvulus: Status: Acute (3) Postoperative anemia due to acute blood loss: Status: Acute Narrative A/P Narrative: Clamp nasogastric tube Metoclopramide 10 mg IV every 6 hours Probable discontinue nasogastric tube in the morning and advance diet Time Spent With Patient Time: Total time spent is greater than 50% in coordination of care (as documented) at patient's floor/unit and/or counseling patient:
[2021-04-09] MEDS: PIPERACILLIN SODIUM/TAZOBACTAM 2.25 GM in DEXTROSE 5% IN WATER 50 ML IV SCH ×4 (00:40→17:17)
[2021-04-09] MEDS: 0.9 % SODIUM CHLORIDE 1,000 ML IV SCH ×4 (00:40→20:14)
[2021-04-09] MEDS: METOCLOPRAMIDE 10 MG/2 ML VIAL IV SCH ×4 (00:40→17:16)
[2021-04-09] MEDS: ACETAMINOPHEN 1,000 MG/100 ML BAG IV SCH ×4 (01:48→19:33)
[2021-04-09] MEDS: 0.9 % SODIUM CHLORIDE 10 ML SYRINGE IV SCH ×3 (05:52→20:14)
[2021-04-09] MEDS: PANTOPRAZOLE 40 MG VIAL IV SCH ×2 (06:49→17:16)
[2021-04-09 07:58] LABS: Basophils # (Auto) 0.03 K/mcL (0.00-0.30); Basophils % (Auto) 0.5 % (0.0-2.0); Eosinophils # (Auto) 0.17 K/mcL (0.00-0.70); Eosinophils % (Auto) 2.6 % (0.0-7.0); Hematocrit 32.2 % (40.1-51.0); Hemoglobin 10.7 g/dL (13.7-17.5); Lymphocytes # (Auto) 1.61 K/mcL (1.50-4.80); Lymphocytes % (Auto) 24.9 % (15.5-49.0); Mean Cell Volume 92.8 fL (80.0-100.0); Mean Corpuscular HGB Conc 33.2 g/dL (31.0-36.0); Mean Platelet Volume 8.8 fL (7.4-10.4); Monocytes # (Auto) 0.51 K/mcL (0.10-0.90); Monocytes % (Auto) 7.9 % (1.0-12.0); Platelet Count 166 K/mcL (140-440); RBC 3.47 M/mcL (4.63-6.08); Red Cell Distribution Width 16.1 % (11.5-14.5); WBC 6.5 K/mcL (4.5-11.0)
[2021-04-09 08:16] LABS: ALT/SGPT 9 U/L (<40); AST/SGOT 22 U/L (<40); Albumin 2.4 gm/dL (3.2-5.2); Albumin/Globulin Ratio 0.9 (1.0-2.3); Alkaline Phosphatase 109 U/L (39-117); Bilirubin,Direct 0.4 mg/dL (<0.3); Bilirubin,Total 0.6 mg/dL (0.1-1.0); Blood Urea Nitrogen 13 mg/dL (8-23); Calcium 8.1 mg/dL (8.6-10.4); Carbon Dioxide 18 mmol/L (22-30); Chloride 108 mmol/L (96-108); Globulin 2.8 gm/dL (2.2-3.7); Glomerular Filtration Rate 76; Glucose 99 mg/dL (70-105); Lactate Dehydrogenase 192 U/L (135-225); Phosphorous 2.6 mg/dL (2.5-4.5); Triglycerides 85 mg/dL (<150); Uric Acid 3.2 mg/dL (2.5-8.0)
[2021-04-09] MEDS: ONDANSETRON 4 MG/2 ML VIAL IV PRN ×2 (08:16→20:12)
[2021-04-09 09:23] LABS: Neutrophils % (Auto) 64.1 % (38.0-78.0)
--- NOTE | 2021-04-09 11:44 | General Surgery Progress Note ---
SUBJECTIVE Subjective Patient information: Note initiated : 04/09/21 at 11:42 am Service Date, if different from initiated Date: [] Patient: Jericho Costa 89 y/o M admitted on 04/04/21 for Syncopal episode. Chief Complaint: [] Principal diagnosis: Colonic pseudoobstruction with volvulus Interval history: Patient states that he feels much better. He denies nausea. He has had flatus and a small bowel movement. He does not have abdominal distention. White blood count 6.5, hemoglobin 10.7, hematocrit 32.2, potassium 4.1, BUN 13, creatinine 0.9. Constitutional Vitals: Vital Signs Temp Pulse Resp BP Pulse Ox 98.8 F 89 15 129/88 98 04/09/21 08:36 04/09/21 08:36 04/09/21 08:36 04/09/21 08:36 04/09/21 08:36 Period Temp Pulse Resp BP Sys/Farias Pulse Ox Last 24 Hr 97.8 F-98.8 F 89-102 12-16 111-129/65-88 95-98 Intake and Output 04/08/21 04/09/21 04/09/21 21:59 05:59 13:59 Intake Total 8149 298 6827 Output Total 650 350 300 Balance 600 -200 850 Weight 180 lb 3 oz Intake & Output: Intake & Output 04/08/21 04/09/21 04/09/21 21:59 05:59 13:59 Intake Total 6495 524 7923 Output Total 650 350 300 Balance 600 -200 850 Weight 180 lb 3 oz Intake: IV 8414 912 9164 Sodium Chloride 0.9% 1,000 ml @ 1000 1000 125 mls/hr IV .Q8H [facility] Rx#: [id number] Zosyn 2.25 gm In Dextrose 5% in 50 50 50 Water 50 ml @ 100 mls/hr IV Q6H [facility] Rx#:[id number] Output: Gastric Drainage 250 NG/OG 250 Urine Catheter Amount 400 350 300 Other: Urine Appearance Clear Clear Urine Color Dark Olamide Bright Yellow Urine Odor Foul Stool Size Moderate Stool Color Brown Black Stool Consistency Soft Loose # Unmeasured Emesis 1 # of times incontinent of 1 Bowels # Emeses 1 Eye Eye exam: Present EOMI, normal appearance and PERRL ENT ENT exam: Present mucous membranes dry Neck Neck exam: Present full ROM and normal inspection Respiratory Respiratory exam: Present normal respiratory exam and CTAB Cardiovascular Cardiovascular exam: Present normal rate and rhythm, irregular rhythm, +S1 and +S2; Absent JVD GI/Abdominal GI/Abdominal exam: Present soft, diminished bowel sounds, distended (MILD DISTENTION) and tenderness (MILD INCISIONAL TENDERNESS) Extremities Exam Extremities exam: Present full ROM and neurovascular intact; Absent pedal edema Neurological Exam Neurological exam: Present alert and oriented X3 Psychiatric Psychiatric exam: Present normal affect and normal mood A/P Assessment and plan (1) Cecal volvulus: Status: Acute (2) Primary chronic pseudo-obstruction of colon: Status: Acute (3) Postoperative anemia due to acute blood loss: Status: Acute (4) Syncope: Status: Acute Narrative A/P Narrative: Discontinue nasogastric tube Discontinue Valerio catheter Clear liquid diet and advance to full liquids in the morning Make arrangements for rehab due to severely debilitated state and the fact that he lives alone Time Spent With Patient Time: Total time spent is greater than 50% in coordination of care (as documented) at patient's floor/unit and/or counseling patient:
[2021-04-09] MEDS ORDERED: BISACODYL 10 MG SUPP.RECT PR ONE (19:26)
[2021-04-10] MEDS: METOCLOPRAMIDE 10 MG/2 ML VIAL IV SCH ×5 (00:47→23:36)
[2021-04-10] MEDS: PIPERACILLIN SODIUM/TAZOBACTAM 2.25 GM in DEXTROSE 5% IN WATER 50 ML IV SCH ×5 (00:47→23:36)
[2021-04-10] MEDS: ACETAMINOPHEN 1,000 MG/100 ML BAG IV SCH ×4 (01:44→19:11)
--- NOTE | 2021-04-10 05:06 | XRay Report ---
CLINICAL INFORMATION: Dark brown emesis. Status post colectomy 04/04 COMPARISON: None. FINDINGS: The stomach upper and mid small bowel loops are markedly dilated. The distal small bowel and residual colon are decompressed. In addition, there is moderate free air in the upper abdomen. IMPRESSION: High-grade mid small bowel obstruction. Moderate free air noted-more than expected five days postop. GI tract perforation is suspected. [facility] notified (Jesenia) 0500 hours 04/10/2021. She will contact Dr. Beckford Interpreted and Authenticated by: Aubrey Baird 04/10/21
[2021-04-10] MEDS: 0.9 % SODIUM CHLORIDE 10 ML SYRINGE IV SCH ×3 (05:49→21:46)
[2021-04-10 07:47] LABS: Basophils # (Auto) 0.05 K/mcL (0.00-0.30); Basophils % (Auto) 0.3 % (0.0-2.0); Eosinophils # (Auto) 0 K/mcL (0.00-0.70); Eosinophils % (Auto) 0 % (0.0-7.0); Hematocrit 31.4 % (40.1-51.0); Hemoglobin 10.6 g/dL (13.7-17.5); Lymphocytes # (Auto) 1.56 K/mcL (1.50-4.80); Lymphocytes % (Auto) 9.8 % (15.5-49.0); Mean Cell Volume 93.7 fL (80.0-100.0); Mean Corpuscular HGB Conc 33.8 g/dL (31.0-36.0); Mean Platelet Volume 9.2 fL (7.4-10.4); Monocytes % (Auto) 3.8 % (1.0-12.0); Platelet Count 226 K/mcL (140-440); RBC 3.35 M/mcL (4.63-6.08); Red Cell Distribution Width 16.6 % (11.5-14.5)
[2021-04-10 07:53] LABS: ALT/SGPT 12 U/L (<40); AST/SGOT 25 U/L (<40); Albumin 2.5 gm/dL (3.2-5.2); Albumin/Globulin Ratio 0.8 (1.0-2.3); Alkaline Phosphatase 136 U/L (39-117); Bilirubin,Direct 0.3 mg/dL (<0.3); Bilirubin,Total 0.5 mg/dL (0.1-1.0); Blood Urea Nitrogen 21 mg/dL (8-23); Calcium 8.8 mg/dL (8.6-10.4); Carbon Dioxide 16 mmol/L (22-30); Chloride 105 mmol/L (96-108); Glomerular Filtration Rate 48; Glucose 152 mg/dL (70-105); Lactate Dehydrogenase 232 U/L (135-225); Triglycerides 99 mg/dL (<150); Uric Acid 3.7 mg/dL (2.5-8.0)
[2021-04-10] MEDS: ONDANSETRON 4 MG/2 ML VIAL IV PRN (08:16)
[2021-04-10 08:23] LABS: Neutrophils % (Auto) 86.1 % (38.0-78.0)
[2021-04-10] MEDS: 0.9 % SODIUM CHLORIDE 1,000 ML IV SCH ×3 (09:28→21:04)
[2021-04-10] MEDS: PANTOPRAZOLE 40 MG VIAL IV SCH ×2 (10:36→16:33)
[2021-04-10] MEDS ORDERED: DIATRIZOATE MEGLU/DIATRIZO SOD 120 ML BOTTLE PO ONE (14:06)
[2021-04-10] MEDS ORDERED: 0.9 % SODIUM CHLORIDE 500 ML IV ONE (14:15)
--- NOTE | 2021-04-10 14:27 | General Surgery Progress Note ---
SUBJECTIVE Subjective Patient information: Note initiated : 04/10/21 at 2:17 pm Service Date, if different from initiated Date: [] Patient: Jericho Costa 89 y/o M admitted on 04/04/21 for Syncopal episode. Chief Complaint: [] Principal diagnosis: Colonic pseudoobstruction with volvulus Interval history: Patient had decreased output of gas during the night so a plain film of the abdomen was done. This showed dilated loops of small bowel and some residual subphrenic air which was interpreted as being compatible with bowel perforation. The patient however has been clinically stable otherwise. A small bowel follow-through was performed earlier today and it showed diffuse dilation of stomach and small bowel down to the terminal ileal level. He had 3 large bowel movements after the institution of the small bowel follow-through. He continued however to have major dilation of his small bowel and stomach. Nasogastric tube was placed and he has put out about 2600 to 2800 cc of fluid. Patient remains clinically stable. He does have mild tachycardia but this may be related to fluid shifts. He will be given a saline bolus then baseline saline is increased to 150 cc/h. A follow-up 2 view abdominal x-ray will be done tomorrow. Plans will be made for PICC line placement and institution of TPN to allow his bowel to be functional. There is no evidence of any intestinal perforation at this time. His abdomen is soft and pliable without any tenderness and he has active bowel sounds. Constitutional Vitals: Vital Signs Temp Pulse Resp BP Pulse Ox 97.9 F 123 H 20 140/88 90 04/10/21 12:00 04/10/21 12:00 04/10/21 12:00 04/10/21 12:00 04/10/21 12:00 Period Temp Pulse Resp BP Sys/Farias Pulse Ox Last 24 Hr 97.8 F-98.3 F 75-123 16-24 105-140/62-89 90-100 Intake and Output 04/10/21 04/10/21 04/10/21 05:59 13:59 21:59 Intake Total 150 1300 Output Total 451 102 Balance -301 1198 Intake & Output: Intake & Output 04/10/21 04/10/21 04/10/21 05:59 13:59 21:59 Intake Total 150 1300 Output Total 451 102 Balance -301 1198 Intake: IV 150 1300 Sodium Chloride 0.9% 1,000 ml @ 1000 100 mls/hr IV .Q10H DANE Rx#: [id number] Zosyn 2.25 gm In Dextrose 5% in 50 100 Water 50 ml @ 100 mls/hr IV Q6H [facility] Rx#:[id number] Output: Void Amount 0 100 # of times incontinent of urine 1 2 Urine/Stool Mix 450 Other: Urine Appearance Clear Clear Urine Color Straw Straw Urine Odor Normal Stool Size Small Large Stool Color Black Black Stool Consistency Liquid Loose Loose # of times incontinent of 1 1 Bowels ENT ENT exam: Present mucous membranes dry Neck Neck exam: Present full ROM and normal inspection Respiratory Respiratory exam: Present normal respiratory exam and CTAB Cardiovascular Cardiovascular exam: Present normal rate and rhythm, irregular rhythm, +S1 and +S2; Absent JVD GI/Abdominal GI/Abdominal exam: Present soft, diminished bowel sounds, distended (MILD DISTENTION) and tenderness (MILD INCISIONAL TENDERNESS) Extremities Exam Extremities exam: Present full ROM and neurovascular intact; Absent pedal edema Neurological Exam Neurological exam: Present alert and oriented X3 Psychiatric Psychiatric exam: Present normal affect and normal mood A/P Assessment and plan (1) Alteration in bowel elimination due to postoperative ileus: Status: Acute (2) Primary chronic pseudo-obstruction of colon: Status: Acute Narrative A/P Narrative: Continue nasogastric suction Increase IV infusion rate Follow-up abdominal x-rays in the morning Make arrangements for PICC line placement and TPN Delay discharge to SNF until patient can tolerate p.o. intake Time Spent With Patient Time: Total time spent is greater than 50% in coordination of care (as documented) at patient's floor/unit and/or counseling patient:
--- NOTE | 2021-04-10 14:51 | XRay Report ---
CLINICAL INFORMATION: Abdominal pain and distention. Suspect recurrent distal small bowel obstruction with possible GI tract perforation COMPARISON: Abdominal plain films 04/09/2021 TECHNIQUE: Following stretch machine operator imaging, water-soluble enteric contrast was ingested and serial images of the abdomen and pelvis were obtained over four hours. FINDINGS: The stomach, duodenum and jejunum are markedly dilated. Contrast transit time is markedly delayed: on the 3.5 hour film most the stomach and small bowel are opacified, however no contrast is seen in the distal small bowel or colon. IMPRESSION: High-grade distal small bowel obstruction. Although there is no gross evidence of enteric contrast extravasation into the mesenteric cavity on the basis of plain film, a noncontrast abdomen and pelvic CT should be considered at this point. It would be more sensitive in evaluating GI tract perforation Interpreted and Authenticated by: Aubrey Baird 04/10/21
[2021-04-10] MEDS: HYDROmorphone 0.5 MG/0.5 ML SYRINGE IV PRN (21:46)
[2021-04-11] MEDS: ACETAMINOPHEN 1,000 MG/100 ML BAG IV SCH ×4 (01:06→19:01)
[2021-04-11] MEDS: 0.9 % SODIUM CHLORIDE 1,000 ML IV SCH ×4 (04:56→21:46)
[2021-04-11] MEDS: PIPERACILLIN SODIUM/TAZOBACTAM 2.25 GM in DEXTROSE 5% IN WATER 50 ML IV SCH ×3 (05:08→17:58)
[2021-04-11] MEDS: METOCLOPRAMIDE 10 MG/2 ML VIAL IV SCH ×3 (05:56→17:37)
[2021-04-11] MEDS: 0.9 % SODIUM CHLORIDE 10 ML SYRINGE IV SCH ×3 (05:56→21:10)
[2021-04-11] MEDS: PANTOPRAZOLE 40 MG VIAL IV SCH ×2 (06:47→16:08)
[2021-04-11 11:02] LABS: Basophils # (Auto) 0.07 K/mcL (0.00-0.30); Basophils % (Auto) 0.3 % (0.0-2.0); Eosinophils # (Auto) 0.03 K/mcL (0.00-0.70); Eosinophils % (Auto) 0.1 % (0.0-7.0); Hematocrit 27.7 % (40.1-51.0); Hemoglobin 9.2 g/dL (13.7-17.5); Lymphocytes # (Auto) 1.86 K/mcL (1.50-4.80); Lymphocytes % (Auto) 8.9 % (15.5-49.0); Mean Cell Volume 94.9 fL (80.0-100.0); Mean Corpuscular HGB Conc 33.2 g/dL (31.0-36.0); Monocytes # (Auto) 0.39 K/mcL (0.10-0.90); Monocytes % (Auto) 1.9 % (1.0-12.0); Platelet Count 220 K/mcL (140-440); RBC 2.92 M/mcL (4.63-6.08); Red Cell Distribution Width 16.8 % (11.5-14.5); WBC 20.8 K/mcL (4.5-11.0)
[2021-04-11 11:18] LABS: ALT/SGPT 13 U/L (<40); AST/SGOT 31 U/L (<40); Albumin 2.3 gm/dL (3.2-5.2); Albumin/Globulin Ratio 0.8 (1.0-2.3); Alkaline Phosphatase 120 U/L (39-117); Bilirubin,Direct 0.3 mg/dL (<0.3); Bilirubin,Total 0.5 mg/dL (0.1-1.0); Blood Urea Nitrogen 26 mg/dL (8-23); Calcium 8.6 mg/dL (8.6-10.4); Carbon Dioxide 19 mmol/L (22-30); Chloride 112 mmol/L (96-108); Glomerular Filtration Rate 48; Glucose 111 mg/dL (70-105); Lactate Dehydrogenase 214 U/L (135-225); Phosphorous 2.1 mg/dL (2.5-4.5); Triglycerides 88 mg/dL (<150); Uric Acid 3.5 mg/dL (2.5-8.0)
[2021-04-11 12:39] LABS: Neutrophils % (Auto) 88.8 % (38.0-78.0)
--- NOTE | 2021-04-11 13:37 | Cat Scan Report ---
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 Following reconstruction, 2.5 mm sagittal, coronal and axial reformatted images were processed and reviewed at bone and soft tissue windows.The exam was performed using radiation dose optimization techniques including, but not limited to, automated exposure control, adjustment of the mA and/or kV according to patient size and use of iterative reconstruction technique. FINDINGS: Moderate patchy mixed interstitial/alveolar infiltrates seen throughout the lung bases including the visualized lower lobes, lingula and right middle lobe. They have progressed considerably since the comparison study one week prior. Small bilateral pleural effusions also show slight increase. The heart is enlarged, but unchanged. Heavy calcific plaque seen in the coronary arteries. Imaging of the abdomen show a 6 mm solitary stone the gallbladder-as previously seen. The gallbladder and bile ducts are, otherwise, normal. The CBD is 5 mm. The noncontrasted liver, spleen, pancreas, both adrenal glands and aorta are normal in size, configuration and attenuation without focal lesion. Scattered bilateral renal cysts, ranging up to 6.2 cm inferior pole left kidney, are unchanged. No significant renal abnormality. There is no adenopathy Pelvic images show mild prostate enlargement which is stable. The urinary bladder and seminal vesicles are unremarkable. Since the previous CT, subtotal colectomy has been performed with anastomosis of the ileum to the distal sigmoid colon. At the anastomotic site, there is mild stenosis, approximately 50%, resulting in only mild small bowel obstruction. NG tube is properly positioned with the tip in the gastric body. The stomach and duodenum are decompressed. The proximal jejunum is mildly dilated with a transition point in the left mid mesenteric cavity (axial image 111 and coronal image 62. (The distal small bowel is decompressed. There may be adhesion or stricture at the transition point. It may also merely represent mild small bowel wall edema. Moderate simple ascites is seen in the abdomen and pelvis. Moderate free air, in the nondependent mesenteric cavity, is unchanged in volume from yesterday's small bowel follow-through study. There is no evidence of enteric contrast extravasation in the peritoneal cavity from the enteric contrast given on the yesterday's small bowel follow-through. Bone windows show no osseous abnormality. IMPRESSION: 1. Subtotal colectomy with ileal anastomosis to the distal sigmoid colon. Mild (50%) stenosis at the anastomosis resulting in mild partial small bowel obstruction. A second narrowing is seen in the mid jejunum located in the left mid mesenteric cavity. Proximal small bowel is mildly dilated and there is relative decompression of the distal small bowel from that point. This likely represents edema, but could represent adhesion or stricture. Large amount of free air in the nondependent upper mesenteric cavity is unchanged from yesterday's plain film. Moderate simple ascites is also noted. There is no enteric contrast, administered on yesterday's small bowel follow-through, which has freely extravasated into the mesenteric cavity. This would militate against an active GI tract perforation. Likely, the air and fluid still residual from surgery. In addition, the abdominal examination (per Dr. Beckford) is benign 2. Solitary 6 mm stone the gallbladder. 3. Bilateral renal cysts-stable 4. Moderate mixed interstitial/alveolar infiltrates in both visualized lower lobes lingula and right middle lobe. Consider aspiration. Interpreted and Authenticated by: Aubrey Baird 04/11/21
--- NOTE | 2021-04-11 13:46 | General Surgery Progress Note ---
SUBJECTIVE Subjective Patient information: Note initiated : 04/11/21 at 1:41 pm Service Date, if different from initiated Date: [] Patient: Jericho Costa 89 y/o M admitted on 04/04/21 for Syncopal episode. Chief Complaint: [] Principal diagnosis: Colonic pseudoobstruction with volvulus Interval history: Patient has remained clinically stable however his abdominal x-ray suggests free air which is unchanged from yesterday. A small bowel follow-through was done yesterday and he had multiple bowel movements. Morning x-rays shows that contrast has reached the rectum however there is no evidence of free contrast in the fluid that is in the peritoneal cavity. The morning x- ray area is about the same. A CT of the abdomen was done and this shows the upper abdominal free air but no free contrast and no evidence of any air or contrast around the anastomosis. Patient is somewhat depressed because of his illness. Vital signs are stable and he has been afebrile since surgery. He has mild tachycardia in the 110 range but blood pressure has been stable. Discussed the situation with radiology and the plan is to do follow-up x-rays in the morning Constitutional Vitals: Vital Signs Temp Pulse Resp BP Pulse Ox 97.6 F 103 H 20 117/60 93 04/11/21 11:43 04/11/21 11:43 04/11/21 11:43 04/11/21 11:43 04/11/21 11:43 Period Temp Pulse Resp BP Sys/Farias Pulse Ox Last 24 Hr 97.6 F-98.7 F 92-123 16-24 97-122/49-68 92-97 Intake and Output 04/10/21 04/11/21 04/11/21 21:59 05:59 13:59 Intake Total 1700 1200 155 Output Total 3826 701 250 Balance -2126 499 -95 Weight 177 lb Intake & Output: Intake & Output 04/10/21 04/11/21 04/11/21 21:59 05:59 13:59 Intake Total 1700 1200 155 Output Total 3826 701 250 Balance -2126 499 -95 Weight 177 lb Intake: IV 1650 1200 150 Sodium Chloride 0.9% 1,000 ml @ 1000 1000 150 mls/hr IV .Q6H40M [facility] Rx#: [id number] Sodium Chloride 0.9% 500 ml @ 500 500 mls/hr IV [facility] Rx#: [id number] Zosyn 2.25 gm In Dextrose 5% in 50 100 50 Water 50 ml @ 100 mls/hr IV Q6H [facility] Rx#:[id number] Oral 50 5 Output: Gastric Drainage 3700 700 Right Nare NG/OG 3700 700 Void Amount 125 250 # of times incontinent of urine 1 1 Other: Urine Appearance Cloudy Clear Sediment Urine Color Dark Yellow Light Olamide Urine Odor Strong Stool Size Small Moderate Stool Color Black Black Stool Consistency Loose Liquid # Voids 1 # of times incontinent of 1 1 Bowels ENT ENT exam: Present mucous membranes dry Neck Neck exam: Present full ROM and normal inspection Respiratory Respiratory exam: Present normal respiratory exam and CTAB Cardiovascular Cardiovascular exam: Present normal rate and rhythm, irregular rhythm, +S1 and +S2; Absent JVD GI/Abdominal GI/Abdominal exam: Present soft, diminished bowel sounds, distended (MILD DISTENTION) and tenderness (MILD INCISIONAL TENDERNESS) Extremities Exam Extremities exam: Present full ROM and neurovascular intact; Absent pedal edema Back Exam Back exam: Present full ROM and normal inspection Neurological Exam Neurological exam: Present alert and oriented X3 Psychiatric Psychiatric exam: Present depressed and flat affect A/P Assessment and plan (1) Alteration in bowel elimination due to postoperative ileus: Status: Acute (2) Primary chronic pseudo-obstruction of colon: Status: Acute Narrative A/P Narrative: Replace potassium phosphate Repeat abdominal x-rays in the morning Repeat CBC and inpatient panel in the morning Time Spent With Patient Time: Total time spent is greater than 50% in coordination of care (as documented) at patient's floor/unit and/or counseling patient:
[2021-04-11] MEDS: POTASSIUM PHOSPHATE 40 MEQ in DEXTROSE 5% IN WATER 500 ML IV SCH ×2 (14:10→19:24)
--- NOTE | 2021-04-11 14:10 | XRay Report ---
CLINICAL INFORMATION: FOR F/U OF ILEUS COMPARISON: 04/10/2021 FINDINGS: NG tube remains in the gastric body. Multiple loops of moderately dilated small bowel appreciated. Water-soluble enteric contrast, given on yesterday's small bowel follow-through exam, has moved into the distal small bowel and rectum. Moderate free intraperitoneal air in the upper abdomen is unchanged IMPRESSION: Ileus versus distal partial small bowel obstruction. Moderate free intraperitoneal air is unchanged from yesterday. No definite contrast seen in the peritoneal cavity from yesterday's small bowel follow-through exam that would support GI tract perforation Interpreted and Authenticated by: Aubrey Baird 04/11/21
[2021-04-11] MEDS: HYDROmorphone 0.5 MG/0.5 ML SYRINGE IV PRN (22:19)
[2021-04-12] MEDS: ACETAMINOPHEN 1,000 MG/100 ML BAG IV SCH ×4 (01:47→21:59)
[2021-04-12] MEDS: PIPERACILLIN SODIUM/TAZOBACTAM 2.25 GM in DEXTROSE 5% IN WATER 50 ML IV SCH ×5 (05:35→23:44)
[2021-04-12] MEDS: 0.9 % SODIUM CHLORIDE 10 ML SYRINGE IV SCH ×3 (05:35→21:59)
[2021-04-12] MEDS: METOCLOPRAMIDE 10 MG/2 ML VIAL IV SCH ×5 (05:35→23:41)
[2021-04-12 06:25] LABS: Basophils # (Auto) 0.04 K/mcL (0.00-0.30); Basophils % (Auto) 0.2 % (0.0-2.0); Eosinophils # (Auto) 0.16 K/mcL (0.00-0.70); Eosinophils % (Auto) 0.9 % (0.0-7.0); Hematocrit 28.2 % (40.1-51.0); Hemoglobin 9.1 g/dL (13.7-17.5); Lymphocytes % (Auto) 8.6 % (15.5-49.0); Mean Cell Volume 95.3 fL (80.0-100.0); Mean Corpuscular HGB Conc 32.3 g/dL (31.0-36.0); Mean Platelet Volume 8.9 fL (7.4-10.4); Monocytes # (Auto) 0.39 K/mcL (0.10-0.90); Monocytes % (Auto) 2.1 % (1.0-12.0); Neutrophils % (Auto) 88.2 % (38.0-78.0); Platelet Count 224 K/mcL (140-440); RBC 2.96 M/mcL (4.63-6.08); Red Cell Distribution Width 17.2 % (11.5-14.5); WBC 18.6 K/mcL (4.5-11.0)
[2021-04-12] MEDS: 0.9 % SODIUM CHLORIDE 1,000 ML IV SCH ×3 (06:30→17:38)
[2021-04-12] MEDS: PANTOPRAZOLE 40 MG VIAL IV SCH ×2 (07:04→17:42)
--- NOTE | 2021-04-12 09:00 | XRay Report ---
HISTORY: Follow-up postoperative ileus, status post subtotal colectomy FINDINGS: There is a moderate amount of free intra-abdominal air beneath the diaphragms on the upright view. There is inflammation/fibrosis in both lung bases. The volume of free intra-abdominal air has not changed significantly since the abdomen CT scan performed yesterday. There are still multiple loops of dilated small intestine which contain air-fluid levels. There is residual contrast in the small bowel. Small bowel loops measure up to 5.5 cm in greatest dimension. There is contrast in the remaining distal sigmoid and rectal stump. In the right lower quadrant there is a segment of small bowel which has thickened and irregular hernandez. This is located near the anastomosis with the remaining sigmoid colon and has not changed significantly since yesterday. IMPRESSION: Persistent ileus and nonspecific inflammatory changes in the distal ileum near the anastomosis. Free intra-abdominal air but no free intra-abdominal contrast is present. Interpreted and Authenticated by: Luis Miguel Spangler 04/12/21
[2021-04-12 09:03] LABS: ALT/SGPT 13 U/L (<40); AST/SGOT 30 U/L (<40); Albumin 2.3 gm/dL (3.2-5.2); Albumin/Globulin Ratio 0.8 (1.0-2.3); Alkaline Phosphatase 139 U/L (39-117); Bilirubin,Direct 0.3 mg/dL (<0.3); Bilirubin,Total 0.6 mg/dL (0.1-1.0); Blood Urea Nitrogen 25 mg/dL (8-23); Calcium 8.2 mg/dL (8.6-10.4); Carbon Dioxide 18 mmol/L (22-30); Chloride 116 mmol/L (96-108); Globulin 2.9 gm/dL (2.2-3.7); Glomerular Filtration Rate 59; Glucose 102 mg/dL (70-105); Lactate Dehydrogenase 217 U/L (135-225); Phosphorous 2.9 mg/dL (2.5-4.5); Triglycerides 106 mg/dL (<150); Uric Acid 3.3 mg/dL (2.5-8.0)
[2021-04-12] MEDS ORDERED: 0.9 % SODIUM CHLORIDE 250 ML IV SCH (11:45)
--- NOTE | 2021-04-12 12:57 | General Surgery Progress Note ---
SUBJECTIVE Subjective Patient information: Note initiated : 04/12/21 at 12:35 pm Service Date, if different from initiated Date: [] Patient: Jericho Costa 89 y/o M admitted on 04/04/21 for Syncopal episode. Chief Complaint: [] Principal diagnosis: Colonic pseudoobstruction with volvulus Interval history: Patient has done well throughout the evening. He has been afebrile and he does not have tachycardia. He had a small bowel movement last evening. He denies nausea. Abdominal x-rays this morning suggests that he has increased free air however the pelvic views does not show any leakage of contrast through the anastomosis. The anastomosis appears to be intact. Potassium 3.5, BUN 25, creatinine 1.1, white blood count 18.6, hemoglobin 9.1, hematocrit 28.2. Discussed the situation with the patient and his sister. We will also discuss it with radiology. The plan is exploratory laparotomy and either washout on takedown of anastomosis with permanent ileostomy. Consent has been obtained. Constitutional Vitals: Vital Signs Temp Pulse Resp BP Pulse Ox 98.0 F 100 H 20 112/70 94 04/12/21 12:00 04/12/21 12:00 04/12/21 12:00 04/12/21 12:00 04/12/21 12:00 Period Temp Pulse Resp BP Sys/Farias Pulse Ox Last 24 Hr 97.6 F-98.3 F 97-111 20-24 112-129/62-77 91-95 Intake and Output 04/11/21 04/12/21 04/12/21 21:59 05:59 13:59 Intake Total 1659.0909 1659.0909 210 Output Total 301 576 102 Balance 1358.0909 1083.0909 108 Weight 178 lb Intake & Output: Intake & Output 04/11/21 04/12/21 04/12/21 21:59 05:59 13:59 Intake Total 1659.0909 1659.0909 210 Output Total 301 576 102 Balance 1358.0909 1083.0909 108 Weight 178 lb Intake: IV 1659.0909 1659.0909 150 Sodium Chloride 0.9% 1,000 ml @ 1000 1000 150 mls/hr IV .Q6H40M [facility] Rx#: [id number] Zosyn 2.25 gm In Dextrose 5% in 50 50 50 Water 50 ml @ 100 mls/hr IV Q6H [facility] Rx#:[id number] Potassium Phosphate 40 Meq In 509.0909 509.0909 Dextrose 5% in Water 500 ml @ 127.273 mls/hr IV Q4H [facility] Rx#: [id number] Oral 60 Output: Gastric Drainage 300 200 Right Nare NG/OG 300 200 Void Amount 375 100 # of times incontinent of urine 1 1 2 Other: Urine Appearance Clear Urine Color Dark Yellow Light Olamide Urine Odor Strong Stool Size Smear Stool Color Black Stool Consistency Liquid # of times incontinent of 1 Bowels Head Head exam: Present atraumatic and normal inspection Eye Eye exam: Present EOMI, normal appearance and PERRL ENT ENT exam: Present mucous membranes dry Neck Neck exam: Present full ROM and normal inspection Respiratory Respiratory exam: Present normal respiratory exam and CTAB Cardiovascular Cardiovascular exam: Present normal rate and rhythm, irregular rhythm, +S1 and +S2; Absent JVD GI/Abdominal GI/Abdominal exam: Present soft, diminished bowel sounds, distended (MILD DISTENTION) and tenderness (MILD INCISIONAL TENDERNESS) Additional comments: Patient has more tenderness and distention than on yesterday Extremities Exam Extremities exam: Present full ROM and neurovascular intact; Absent pedal edema Neurological Exam Neurological exam: Present alert and oriented X3 Psychiatric Psychiatric exam: Present depressed and flat affect A/P Assessment and plan (1) Alteration in bowel elimination due to postoperative ileus: Status: Acute (2) Primary chronic pseudo-obstruction of colon: Status: Acute Narrative A/P Narrative: The patient is not clearing the gas from his small bowel. He does have more distention and more tenderness than he had on yesterday. Subjectively the abdominal x-rays suggest more free air though there is no evidence of contrast leakage. I discussed laparotomy second look to check the anastomosis. If the anastomosis is still intact it should be stable enough to start him on Regonol IV to stimulate peristalsis. If there is a leak he will have anastomotic takedown and permanent end ileostomy because this means that his distal sigmoid and rectum are not functional enough to evacuate his bowel. Time Spent With Patient Time: Total time spent is greater than 50% in coordination of care (as documented) at patient's floor/unit and/or counseling patient:
[2021-04-12] MEDS ORDERED: NEOSTIGMINE 1 MG/ML VIAL ONE (13:44)
[2021-04-12] MEDS ORDERED: LIDOCAINE HCL/PF 100 MG/5 ML SYRINGE IV ONE (13:44)
[2021-04-12] MEDS ORDERED: GLYCOPYRROLATE 0.2 MG/ML VIAL IV ONE (13:44)
[2021-04-12] MEDS ORDERED: MIDAZOLAM 2 MG/2 ML VIAL ONE (13:44)
[2021-04-12] MEDS ORDERED: DEXAMETHASONE 10 MG/ML VIAL ONE (13:44)
[2021-04-12] MEDS ORDERED: KETAMINE 50 MG/ML Syringe (ANEST) IV ONE (13:44)
[2021-04-12] MEDS ORDERED: ONDANSETRON 4 MG/2 ML VIAL ONE (13:44)
[2021-04-12] MEDS ORDERED: PROPOFOL 200 MG/20 ML VIAL IV ONE (13:44)
[2021-04-12] MEDS ORDERED: fentaNYL 100 MCG/2 ML VIAL IV ONE (13:44)
[2021-04-12] MEDS ORDERED: MAGNESIUM SULFATE 2 GM/50 ML BAG IV ONE (13:44)
[2021-04-12] MEDS ORDERED: SUGAMMADEX SODIUM 200 MG/2 ML VIAL IV ONE (13:44)
[2021-04-12] MEDS ORDERED: MEPERIDINE 25 MG/ML VIAL IV PRN (14:21)
[2021-04-12] MEDS ORDERED: fentaNYL 100 MCG/2 ML VIAL IV PRN (14:21)
[2021-04-12] MEDS ORDERED: METHOCARBAMOL 1,000 MG/10 ML VIAL IV PRN (14:21)
[2021-04-12] MEDS ORDERED: IPRATROPIUM/ALBUTEROL 3 ML AMPUL.NEB NEB PRN (14:21)
[2021-04-12] MEDS ORDERED: BENZOCAINE/MENTHOL 1 LOZENGE PO PRN (14:21)
[2021-04-12] MEDS ORDERED: ONDANSETRON 4 MG/2 ML VIAL IV PRN ×2 (14:21→16:43)
[2021-04-12] MEDS ORDERED: LACTATED RINGERS 1,000 ML IV SCH (14:30)
--- NOTE | 2021-04-12 14:59 | Brief Operative Note ---
Brief Operative Note Date of procedure: 04/12/21 Pre-op diagnosis: small bowel ileus with possible anastomotic leak Post-op diagnosis: other (Small bowel ileus with intact anastomosis) Procedure: exploratory laparotomy Grafts/Implants: No Anesthesia: GETA Findings: dilated stomach .,small bowel, and rectum with totally intact anastomosis and free peritoneal fluid ; no evidence of prior leak Complications: none Surgeon: Laurel Beckford Specimens Removed/Pathology: none sent Condition: stable Disposition: PACU
[2021-04-12] MEDS ORDERED: DIATRIZOATE MEGLU/DIATRIZO SOD 120 ML BOTTLE PO ONE (16:43)
[2021-04-12] MEDS: PYRIDOSTIGMINE BROMIDE 10 MG/2 ML AMPUL SC SCH ×2 (17:43→23:42)
[2021-04-12] MEDS: 0.9 % SODIUM CHLORIDE 250 ML IV SCH ×2 (18:02→18:07)
[2021-04-12] MEDS: fentaNYL 100 MCG/2 ML VIAL IV PRN (19:40)
[2021-04-13] MEDS: 0.9 % SODIUM CHLORIDE 1,000 ML IV SCH ×5 (01:53→21:00)
[2021-04-13] MEDS: fentaNYL 100 MCG/2 ML VIAL IV PRN (01:59)
[2021-04-13] MEDS: ACETAMINOPHEN 1,000 MG/100 ML BAG IV SCH ×4 (03:20→21:36)
[2021-04-13] MEDS: HYDROmorphone 0.5 MG/0.5 ML SYRINGE IV PRN (03:24)
[2021-04-13] MEDS: PIPERACILLIN SODIUM/TAZOBACTAM 2.25 GM in DEXTROSE 5% IN WATER 50 ML IV SCH ×3 (06:04→17:30)
[2021-04-13] MEDS: METOCLOPRAMIDE 10 MG/2 ML VIAL IV SCH ×3 (06:04→17:30)
[2021-04-13] MEDS: PYRIDOSTIGMINE BROMIDE 10 MG/2 ML AMPUL SC SCH ×3 (06:09→17:30)
[2021-04-13] MEDS: 0.9 % SODIUM CHLORIDE 10 ML SYRINGE IV SCH ×4 (06:11→21:40)
[2021-04-13] MEDS: PANTOPRAZOLE 40 MG VIAL IV SCH ×2 (07:18→16:13)
[2021-04-13 08:16] LABS: Basophils # (Auto) 0.03 K/mcL (0.00-0.30); Basophils % (Auto) 0.2 % (0.0-2.0); Eosinophils # (Auto) 0 K/mcL (0.00-0.70); Eosinophils % (Auto) 0 % (0.0-7.0); Hematocrit 26.4 % (40.1-51.0); Hemoglobin 8.8 g/dL (13.7-17.5); Lymphocytes # (Auto) 0.83 K/mcL (1.50-4.80); Lymphocytes % (Auto) 5.2 % (15.5-49.0); Mean Corpuscular HGB Conc 33.3 g/dL (31.0-36.0); Mean Platelet Volume 9.1 fL (7.4-10.4); Monocytes % (Auto) 1.3 % (1.0-12.0); Neutrophils % (Auto) 93.3 % (38.0-78.0); Platelet Count 241 K/mcL (140-440); RBC 2.81 M/mcL (4.63-6.08); Red Cell Distribution Width 17.2 % (11.5-14.5)
[2021-04-13 08:41] LABS: ALT/SGPT 13 U/L (<40); AST/SGOT 29 U/L (<40); Albumin 2.3 gm/dL (3.2-5.2); Albumin/Globulin Ratio 0.8 (1.0-2.3); Alkaline Phosphatase 182 U/L (39-117); Bilirubin,Direct 0.3 mg/dL (<0.3); Bilirubin,Total 0.5 mg/dL (0.1-1.0); Blood Urea Nitrogen 26 mg/dL (8-23); Calcium 8.1 mg/dL (8.6-10.4); Carbon Dioxide 18 mmol/L (22-30); Chloride 114 mmol/L (96-108); Globulin 2.8 gm/dL (2.2-3.7); Glomerular Filtration Rate 67; Glucose 118 mg/dL (70-105); Lactate Dehydrogenase 281 U/L (135-225); Phosphorous 2.7 mg/dL (2.5-4.5); Triglycerides 87 mg/dL (<150); Uric Acid 3.7 mg/dL (2.5-8.0)
[2021-04-13] MEDS ORDERED: 0.9 % SODIUM CHLORIDE 10 ML SYRINGE IV PRN (11:29)
--- NOTE | 2021-04-13 12:11 | General Surgery Progress Note ---
SUBJECTIVE Subjective Patient information: Note initiated : 04/13/21 at 12:06 pm Service Date, if different from initiated Date: [] Patient: Jericho Costa 89 y/o M admitted on 04/04/21 for Syncopal episode. Chief Complaint: [] Principal diagnosis: Colonic pseudoobstruction with volvulus Interval history: Patient is doing well. He does not remember having surgery yesterday. Vital signs have been stable and he remains afebrile. White blood count 16,000, hemoglobin 8.8 hematocrit 26.4, potassium 3.9, BUN 26, creatinine 1 Constitutional Vitals: Vital Signs Temp Pulse Resp BP Pulse Ox 97.2 F 94 H 22 122/73 96 04/13/21 07:30 04/13/21 07:30 04/13/21 07:30 04/13/21 07:30 04/13/21 07:30 Period Temp Pulse Resp BP Sys/Farias Pulse Ox Last 24 Hr 96.4 F-98.3 F 94-121 16-24 112-131/59-78 83-97 Intake and Output 04/12/21 04/13/21 04/13/21 21:59 05:59 13:59 Intake Total 150 1210 1250 Output Total 195 350 472 Balance -45 860 778 Weight 183 lb 6.4 oz Intake & Output: Intake & Output 04/12/21 04/13/21 04/13/21 21:59 05:59 13:59 Intake Total 150 1210 1250 Output Total 195 350 472 Balance -45 860 778 Weight 183 lb 6.4 oz Intake: IV 150 1150 1250 Sodium Chloride 0.9% 1,000 ml @ 1000 1000 150 mls/hr IV .Q6H40M [facility] Rx#: [id number] Zosyn 2.25 gm In Dextrose 5% in 50 50 50 Water 50 ml @ 100 mls/hr IV Q6H [facility] Rx#:[id number] Oral 60 Output: Gastric Drainage 50 Right Nare NG/OG 50 Drainage 85 Right Lower Abdomen 85 Drainage 45 200 235 Right Lower Abdomen 45 200 235 Void Amount 150 100 150 # of times incontinent of urine 0 2 Other: Urine Appearance Clear Clear Urine Color Dark Yellow Dark Yellow Light Olamide Urine Odor Strong Strong ENT ENT exam: Present mucous membranes dry Neck Neck exam: Present full ROM and normal inspection Respiratory Respiratory exam: Present normal respiratory exam and CTAB Cardiovascular Cardiovascular exam: Present normal rate and rhythm, irregular rhythm, +S1 and +S2; Absent JVD GI/Abdominal GI/Abdominal exam: Present soft, diminished bowel sounds, distended (MILD DISTENTION) and tenderness (MILD INCISIONAL TENDERNESS) Additional comments: Incision looks good and drainage is serous Extremities Exam Extremities exam: Present full ROM, normal inspection and neurovascular intact Neurological Exam Neurological exam: Present alert and oriented X3 Psychiatric Psychiatric exam: Present depressed and flat affect A/P Assessment and plan (1) Alteration in bowel elimination due to postoperative ileus: Status: Acute (2) Primary chronic pseudo-obstruction of colon: Status: Acute Narrative A/P Narrative: Continue present therapy Start TPN as soon as PICC line is placed. Time Spent With Patient Time: Total time spent is greater than 50% in coordination of care (as documented) at patient's floor/unit and/or counseling patient:
--- NOTE | 2021-04-13 17:00 | XRay Report ---
HISTORY: PICC line insertion FINDINGS: A PICC line has been inserted through the left arm. The tip of the catheter extends through the right atrium and is located near the junction of the right atrium and inferior vena cava. This could be pulled back approximately 8 cm to bring it to the junction of the superior vena cava and right atrium. There are diffuse infiltrates throughout both lungs. The heart is enlarged. Nasogastric tube passes through the esophagus into the distal antrum of the stomach. Large amount of free intra-abdominal air is present. The infiltrates have become worse and the heart has enlarged since the prior chest x-ray done on 04/04/21. Free intra-abdominal air is a chronic finding. IMPRESSION: PICC line positioned at the junction of the right TRAM and the inferior vena cava. Bilateral infiltrates which could be due to fluid overload or pneumonia or ARDS. Interpreted and Authenticated by: Luis Miguel Spangler 04/13/21
[2021-04-13] MEDS ORDERED: TPN PER PHARMACY IV SCH (17:30)
[2021-04-13] MEDS: diphenhydrAMINE 50 MG/ML VIAL IV PRN (21:32)
[2021-04-13] MEDS ORDERED: diphenhydrAMINE 50 MG/ML VIAL ONE (21:33)
[2021-04-14] MEDS: PYRIDOSTIGMINE BROMIDE 10 MG/2 ML AMPUL SC SCH ×5 (00:15→23:50)
[2021-04-14] MEDS: METOCLOPRAMIDE 10 MG/2 ML VIAL IV SCH ×5 (00:15→23:48)
[2021-04-14] MEDS: 0.9 % SODIUM CHLORIDE 1,000 ML IV SCH ×4 (00:20→13:58)
[2021-04-14] MEDS: PIPERACILLIN SODIUM/TAZOBACTAM 2.25 GM in DEXTROSE 5% IN WATER 50 ML IV SCH ×5 (00:22→23:51)
[2021-04-14] MEDS: ACETAMINOPHEN 1,000 MG/100 ML BAG IV SCH ×4 (04:55→21:50)
[2021-04-14] MEDS: 0.9 % SODIUM CHLORIDE 10 ML SYRINGE IV SCH ×5 (06:05→21:51)
[2021-04-14] MEDS: fentaNYL 100 MCG/2 ML VIAL IV PRN (06:10)
[2021-04-14 07:38] LABS: Basophils # (Auto) 0.03 K/mcL (0.00-0.30); Basophils % (Auto) 0.2 % (0.0-2.0); Eosinophils # (Auto) 0 K/mcL (0.00-0.70); Eosinophils % (Auto) 0 % (0.0-7.0); Hematocrit 28.8 % (40.1-51.0); Hemoglobin 9.3 g/dL (13.7-17.5); Lymphocytes # (Auto) 1.45 K/mcL (1.50-4.80); Lymphocytes % (Auto) 7.9 % (15.5-49.0); Mean Cell Volume 98.6 fL (80.0-100.0); Mean Corpuscular HGB Conc 32.3 g/dL (31.0-36.0); Mean Platelet Volume 9.1 fL (7.4-10.4); Monocytes # (Auto) 0.48 K/mcL (0.10-0.90); Monocytes % (Auto) 2.6 % (1.0-12.0); Neutrophils % (Auto) 89.3 % (38.0-78.0); Platelet Count 277 K/mcL (140-440); RBC 2.92 M/mcL (4.63-6.08); Red Cell Distribution Width 17.3 % (11.5-14.5); WBC 18.3 K/mcL (4.5-11.0)
[2021-04-14 08:23] LABS: ALT/SGPT 14 U/L (<40); AST/SGOT 28 U/L (<40); Albumin 2.1 gm/dL (3.2-5.2); Albumin/Globulin Ratio 0.7 (1.0-2.3); Alkaline Phosphatase 162 U/L (39-117); Bilirubin,Direct 0.4 mg/dL (<0.3); Bilirubin,Total 0.6 mg/dL (0.1-1.0); Blood Urea Nitrogen 29 mg/dL (8-23); Calcium 8.1 mg/dL (8.6-10.4); Carbon Dioxide 18 mmol/L (22-30); Chloride 116 mmol/L (96-108); Globulin 3.2 gm/dL (2.2-3.7); Glomerular Filtration Rate 67; Glucose 99 mg/dL (70-105); Lactate Dehydrogenase 250 U/L (135-225); Triglycerides 110 mg/dL (<150); Uric Acid 3.9 mg/dL (2.5-8.0)
[2021-04-14] MEDS: PANTOPRAZOLE 40 MG VIAL IV SCH ×2 (08:29→16:14)
[2021-04-14] MEDS: POTASSIUM PHOSPHATE 40 MEQ in DEXTROSE 5% IN WATER 500 ML IV SCH ×2 (09:02→13:58)
[2021-04-14] MEDS ORDERED: DEXTROSE 50% 50 ML VIAL IV PRN (10:25)
[2021-04-14] MEDS ORDERED: CALCIUM GLUCONATE IV SCH (11:00)
[2021-04-14] MEDS ORDERED: MAGNESIUM SULFATE IV SCH (11:00)
[2021-04-14] MEDS ORDERED: [UNRECOGNIZED DRUG - OTHER] IV SCH (11:00)
[2021-04-14] MEDS ORDERED: POTASSIUM CHLORIDE IV SCH (11:00)
--- NOTE | 2021-04-14 13:45 | General Surgery Progress Note ---
SUBJECTIVE Subjective Patient information: Note initiated : 04/14/21 at 1:40 pm Service Date, if different from initiated Date: [] Patient: Jericho Costa 89 y/o M admitted on 04/04/21 for Syncopal episode. Chief Complaint: [] Principal diagnosis: Colonic pseudoobstruction with volvulus Interval history: Patient is clinically stable. He still states that he is weak and is very depressed. Vital signs are stable. Oxygen saturations above 90% on room air. He denies any shortness of breath or chest pain. He is having increasing amount of large bowel movement probably related to the Regonol therapy. White blood count 18 3, hemoglobin 9.3, hematocrit 28.8, potassium 3.6, BUN 29, creatinine 1, phosphorus 2, albumin 2.1. Constitutional Vitals: Vital Signs Temp Pulse Resp BP Pulse Ox 98.0 F 104 H 24 H 139/86 96 04/14/21 07:22 04/14/21 07:22 04/14/21 07:22 04/14/21 07:22 04/14/21 07:22 Period Temp Pulse Resp BP Sys/Farias Pulse Ox Last 24 Hr 97.4 F-98.3 F 75-110 14-24 119-142/70-86 93-96 Intake and Output 04/13/21 04/14/21 04/14/21 21:59 05:59 13:59 Intake Total 1275 1210 1250 Output Total 550 382 130 Balance 862 939 1806 Weight 185 lb 1.6 oz Intake & Output: Intake & Output 04/13/21 04/14/21 04/14/21 21:59 05:59 13:59 Intake Total 1275 1210 1250 Output Total 550 382 130 Balance 277 434 9643 Weight 185 lb 1.6 oz Intake: IV 1150 1150 1250 Sodium Chloride 0.9% 1,000 ml @ 1000 1000 1000 150 mls/hr IV .Q6H40M [facility] Rx#: [id number] Zosyn 2.25 gm In Dextrose 5% in 50 50 50 Water 50 ml @ 100 mls/hr IV Q6H [facility] Rx#:[id number] Oral 125 60 Output: Gastric Drainage 150 0 Right Nare NG/OG 150 0 Drainage 110 130 Right Lower Abdomen 110 130 Drainage 90 150 80 Right Lower Abdomen 90 150 80 Void Amount 200 100 50 # of times incontinent of urine 2 Other: Meal popscicle Urine Color Light Olamide Light Olamide Urine Odor Strong Strong Stool Size Small Stool Color Black Stool Consistency Liquid # of times incontinent of 1 Bowels Eye Eye exam: Present EOMI, normal appearance and PERRL ENT ENT exam: Present mucous membranes dry Neck Neck exam: Present full ROM and normal inspection Respiratory Respiratory exam: Present normal respiratory exam and CTAB Cardiovascular Cardiovascular exam: Present normal rate and rhythm, irregular rhythm, +S1 and +S2; Absent JVD GI/Abdominal GI/Abdominal exam: Present soft, diminished bowel sounds, distended (MILD DISTENTION) and tenderness (MILD INCISIONAL TENDERNESS) Additional comments: Incision looks good and drainage is serous Extremities Exam Extremities exam: Present full ROM, normal inspection and neurovascular intact Neurological Exam Neurological exam: Present alert and oriented X3 Psychiatric Psychiatric exam: Present depressed and flat affect Skin Additional comments: Diffuse anasarca A/P Assessment and plan (1) Alteration in bowel elimination due to postoperative ileus: Status: Acute (2) Primary chronic pseudo-obstruction of colon: Status: Acute (3) History of coronary artery disease: Status: Acute Narrative A/P Narrative: Decrease IV to 75 cc/h Advanced TPN with lipids as tolerated May have ice chips and popsicles 2 view abdominal x-ray in the a.m. Time Spent With Patient Time: Total time spent is greater than 50% in coordination of care (as documented) at patient's floor/unit and/or counseling patient:
[2021-04-14] MEDS: INSULIN LISPRO 1 UNIT/0.01 ML UNIT SQ SCH ×3 (13:56→23:56)
[2021-04-14] MEDS ORDERED: FAT EMULSION 20% 250 ML in PREMIX 1 BAG IV SCH (16:00)
[2021-04-14] MEDS: diphenhydrAMINE 50 MG/ML VIAL IV PRN (21:46)
[2021-04-15] MEDS: ACETAMINOPHEN 1,000 MG/100 ML BAG IV SCH ×4 (04:01→22:57)
[2021-04-15] MEDS: PYRIDOSTIGMINE BROMIDE 10 MG/2 ML AMPUL SC SCH ×3 (06:04→17:59)
[2021-04-15] MEDS: METOCLOPRAMIDE 10 MG/2 ML VIAL IV SCH ×3 (06:04→17:58)
[2021-04-15] MEDS: PIPERACILLIN SODIUM/TAZOBACTAM 2.25 GM in DEXTROSE 5% IN WATER 50 ML IV SCH ×3 (06:05→17:58)
[2021-04-15] MEDS: 0.9 % SODIUM CHLORIDE 10 ML SYRINGE IV SCH ×5 (06:13→23:27)
[2021-04-15] MEDS: INSULIN LISPRO 1 UNIT/0.01 ML UNIT SQ SCH ×3 (06:18→18:20)
[2021-04-15] MEDS: fentaNYL 100 MCG/2 ML VIAL IV PRN (06:56)
[2021-04-15] MEDS: 0.9 % SODIUM CHLORIDE 1,000 ML IV SCH ×2 (06:56→16:44)
[2021-04-15 07:29] LABS: Basophils # (Auto) 0.04 K/mcL (0.00-0.30); Basophils % (Auto) 0.2 % (0.0-2.0); Eosinophils # (Auto) 0 K/mcL (0.00-0.70); Eosinophils % (Auto) 0 % (0.0-7.0); Hematocrit 32.3 % (40.1-51.0); Hemoglobin 10.7 g/dL (13.7-17.5); Lymphocytes # (Auto) 1.89 K/mcL (1.50-4.80); Lymphocytes % (Auto) 10.5 % (15.5-49.0); Mean Cell Volume 94.2 fL (80.0-100.0); Mean Corpuscular HGB Conc 33.1 g/dL (31.0-36.0); Mean Platelet Volume 9.1 fL (7.4-10.4); Monocytes % (Auto) 2.2 % (1.0-12.0); Neutrophils % (Auto) 87.1 % (38.0-78.0); Platelet Count 299 K/mcL (140-440); RBC 3.43 M/mcL (4.63-6.08); Red Cell Distribution Width 17.1 % (11.5-14.5)
[2021-04-15 07:47] LABS: ALT/SGPT 14 U/L (<40); AST/SGOT 32 U/L (<40); Albumin 2.5 gm/dL (3.2-5.2); Albumin/Globulin Ratio 0.8 (1.0-2.3); Alkaline Phosphatase 176 U/L (39-117); Bilirubin,Direct 0.3 mg/dL (<0.3); Bilirubin,Total 0.6 mg/dL (0.1-1.0); Blood Urea Nitrogen 23 mg/dL (8-23); Calcium 8.1 mg/dL (8.6-10.4); Carbon Dioxide 19 mmol/L (22-30); Chloride 114 mmol/L (96-108); Globulin 3.2 gm/dL (2.2-3.7); Glomerular Filtration Rate 67; Glucose 130 mg/dL (70-105); Lactate Dehydrogenase 297 U/L (135-225); Phosphorous 2.7 mg/dL (2.5-4.5); Triglycerides 143 mg/dL (<150); Uric Acid 3.2 mg/dL (2.5-8.0)
[2021-04-15] MEDS ORDERED: MAGNESIUM SULFATE IV SCH (11:00)
[2021-04-15] MEDS ORDERED: [UNRECOGNIZED DRUG - OTHER] IV SCH (11:00)
[2021-04-15] MEDS ORDERED: CALCIUM GLUCONATE IV SCH (11:00)
[2021-04-15] MEDS ORDERED: POTASSIUM CHLORIDE IV SCH (11:00)
--- NOTE | 2021-04-15 11:55 | XRay Report ---
HISTORY: Follow-up small bowel obstruction FINDINGS: There is an NG tube in the stomach with the tip in the antrum. The stomach is decompressed. There are loops of dilated small bowel in the right upper quadrant which measure up to 4.8 cm and contain air-fluid levels. There is also a loop of colon interposed between liver and diaphragm. On the AP supine view there is a segment of bowel in the left mid abdomen which has thickened edematous mucosal folds. Free intra-abdominal air is still present following the prior surgery. The volume of air has diminished. The contrast seen within the large intestine on 04/12/21 has cleared. Surgical drain in the midline of the pelvis. IMPRESSION: Incomplete small bowel obstruction Inflamed segment of bowel in the left mid abdomen Diminished volume of free intraperitoneal air Interpreted and Authenticated by: Luis Miguel Spangler 04/15/21
[2021-04-15] MEDS: PANTOPRAZOLE 40 MG VIAL IV SCH ×2 (12:26→17:58)
--- NOTE | 2021-04-15 15:13 | General Surgery Progress Note ---
SUBJECTIVE Subjective Patient information: Note initiated : 04/15/21 at 3:06 pm Service Date, if different from initiated Date: [] Patient: Jericho Costa 89 y/o M admitted on 04/04/21 for Syncopal episode. Chief Complaint: [] Principal diagnosis: Colonic pseudoobstruction with volvulus Interval history: Patient is clinically stable however he is more lethargic today. He does not verbalize. He has had no more bowel movements and nasogastric tube has been discontinued. Is started on clear liquids but his p.o. intake is minimal. White blood count 18,000, hemoglobin 10.7, hematocrit 32.3, potassium 3.2, BUN 23, creatinine 1. He has large volume serous fluid from his SHRUTHI drain. Constitutional Vitals: Vital Signs Temp Pulse Resp BP Pulse Ox 98.8 F 104 H 24 H 117/68 96 04/15/21 11:32 04/15/21 11:32 04/15/21 11:32 04/15/21 11:32 04/15/21 11:32 Period Temp Pulse Resp BP Sys/Farias Pulse Ox Last 24 Hr 97.6 F-98.8 F 102-116 20-24 117-141/66-79 92-96 Intake and Output 04/15/21 04/15/21 04/15/21 05:59 13:59 21:59 Intake Total 500 150 Output Total 732 551 Balance -232 -401 Intake & Output: Intake & Output 04/15/21 04/15/21 04/15/21 05:59 13:59 21:59 Intake Total 500 150 Output Total 732 551 Balance -232 -401 Intake: IV 500 150 Intralipid 20% 250 ml In Premix 250 1 Bag @ 25 mls/hr IV MoWeFr@ 1600 [facility] Rx#:[id number] Zosyn 2.25 gm In Dextrose 5% in 50 50 Water 50 ml @ 100 mls/hr IV Q6H [facility] Rx#:[id number] Oral 0 Output: Gastric Drainage 295 Right Nare NG/OG 295 Drainage 435 550 Right Lower Abdomen 435 550 # of times incontinent of urine 2 1 Other: Urine Appearance Reinserted Valerio Clear Urine Color Reinserted Valerio Bright Yellow Stool Size Small Moderate Stool Color Black Black Stool Consistency Liquid Liquid # Voids 1 # Bowel Movements 1 # of times incontinent of 1 1 Bowels ENT ENT exam: Present mucous membranes dry Neck Neck exam: Present full ROM and normal inspection Respiratory Respiratory exam: Present normal respiratory exam and CTAB Cardiovascular Cardiovascular exam: Present normal rate and rhythm, irregular rhythm, +S1 and +S2; Absent JVD GI/Abdominal GI/Abdominal exam: Present soft, diminished bowel sounds, distended (MILD DISTENTION) and tenderness (MILD INCISIONAL TENDERNESS) Additional comments: Incision looks good and drainage is serous Extremities Exam Extremities exam: Present full ROM, normal inspection and neurovascular intact Neurological Exam Neurological exam: Present alert and oriented X3 Psychiatric Psychiatric exam: Present depressed and flat affect Skin Additional comments: Diffuse anasarca A/P Assessment and plan (1) Alteration in bowel elimination due to postoperative ileus: Status: Acute (2) Primary chronic pseudo-obstruction of colon: Status: Acute (3) History of coronary artery disease: Status: Acute (4) Anasarca: Status: Acute (5) Hypoalbuminemia due to protein-calorie malnutrition: Status: Acute Narrative A/P Narrative: Nystatin swish and swallow 4 times daily Trial of clear liquids Time Spent With Patient Time: Total time spent is greater than 50% in coordination of care (as documented) at patient's floor/unit and/or counseling patient:
[2021-04-15] MEDS: HYDROmorphone 0.5 MG/0.5 ML SYRINGE IV PRN ×2 (15:33→17:57)
[2021-04-15] MEDS: NYSTATIN 500,000 UNITS/5 ML ORAL.SUSP SSW SCH ×2 (18:13→22:58)
[2021-04-15] MEDS ORDERED: NALOXONE HCL 0.4 MG/ML VIAL IV ONE (20:35)
[2021-04-15] MEDS ORDERED: NALOXONE HCL 0.4 MG/ML VIAL ONE (20:40)
[2021-04-15] MEDS ORDERED: FUROSEMIDE 40 MG/4 ML VIAL IV ONE ×2 (20:56→21:01)
[2021-04-15] MEDS ORDERED: 0.9 % SODIUM CHLORIDE 1,000 ML IV SCH (21:00)
[2021-04-15] MEDS ORDERED: IPRATROPIUM/ALBUTEROL 3 ML AMPUL.NEB NEB SCH (21:15)
[2021-04-15] MEDS ORDERED: IPRATROPIUM/ALBUTEROL 3 ML AMPUL.NEB NEB ONE (21:25)
[2021-04-15] MEDS ORDERED: METOPROLOL TARTRATE 5 MG/5 ML VIAL IV ONE ×2 (23:36→23:44)
[2021-04-15 23:40] LABS: Basophils # (Auto) 0.05 K/mcL (0.00-0.30); Basophils % (Auto) 0.2 % (0.0-2.0); Eosinophils # (Auto) 0 K/mcL (0.00-0.70); Eosinophils % (Auto) 0 % (0.0-7.0); Hematocrit 31.2 % (40.1-51.0); Hemoglobin 10.3 g/dL (13.7-17.5); Lymphocytes # (Auto) 1.55 K/mcL (1.50-4.80); Lymphocytes % (Auto) 7.1 % (15.5-49.0); Mean Cell Volume 94.5 fL (80.0-100.0); Monocytes % (Auto) 1.8 % (1.0-12.0); Neutrophils % (Auto) 90.9 % (38.0-78.0); Platelet Count 311 K/mcL (140-440); Red Cell Distribution Width 16.9 % (11.5-14.5); WBC 21.9 K/mcL (4.5-11.0)
[2021-04-16] MEDS ORDERED: fentaNYL 100 MCG/2 ML VIAL IV PRN (00:37)
[2021-04-16] MEDS ORDERED: ONDANSETRON 4 MG/2 ML VIAL IV PRN ×2 (00:37→15:01)
[2021-04-16] MEDS ORDERED: 0.9 % SODIUM CHLORIDE 10 ML SYRINGE IV PRN (00:37)
[2021-04-16] MEDS ORDERED: DEXAMETHASONE 10 MG/ML VIAL ONE (00:37)
[2021-04-16] MEDS ORDERED: TPN PER PHARMACY IV SCH (00:37)
[2021-04-16] MEDS ORDERED: 0.9 % SODIUM CHLORIDE 1,000 ML IV SCH (00:37)
[2021-04-16] MEDS ORDERED: DEXTROSE 50% 50 ML VIAL IV PRN (00:37)
[2021-04-16] MEDS: PYRIDOSTIGMINE BROMIDE 10 MG/2 ML AMPUL SC SCH ×3 (01:30→11:39)
[2021-04-16] MEDS: INSULIN LISPRO 1 UNIT/0.01 ML UNIT SQ SCH ×4 (01:36→11:42)
[2021-04-16] MEDS: IPRATROPIUM/ALBUTEROL 3 ML AMPUL.NEB NEB SCH ×4 (01:38→13:17)
[2021-04-16] MEDS ORDERED: INSULIN LISPRO 1 UNIT/0.01 ML UNIT SQ ONE (01:40)
[2021-04-16] MEDS ORDERED: IPRATROPIUM/ALBUTEROL 3 ML AMPUL.NEB NEB ONE ×2 (01:40→03:07)
[2021-04-16] MEDS: METOCLOPRAMIDE 10 MG/2 ML VIAL IV SCH ×4 (01:54→11:42)
[2021-04-16] MEDS: PIPERACILLIN SODIUM/TAZOBACTAM 2.25 GM in DEXTROSE 5% IN WATER 50 ML IV SCH ×3 (01:55→11:45)
[2021-04-16] MEDS ORDERED: METOCLOPRAMIDE 10 MG/2 ML VIAL ONE ×2 (01:59→06:00)
[2021-04-16] MEDS ORDERED: METOPROLOL TARTRATE 5 MG/5 ML VIAL IV SCH (03:30)
[2021-04-16] MEDS ORDERED: ACETAMINOPHEN 1,000 MG/100 ML BAG IV ONE (03:50)
[2021-04-16] MEDS: ACETAMINOPHEN 1,000 MG/100 ML BAG IV SCH ×4 (05:09→22:50)
[2021-04-16] MEDS ORDERED: METOPROLOL TARTRATE 5 MG/5 ML VIAL IV ONE (05:48)
[2021-04-16] MEDS: 0.9 % SODIUM CHLORIDE 10 ML SYRINGE IV SCH ×5 (06:08→17:22)
[2021-04-16] MEDS ORDERED: METOPROLOL TARTRATE 5 MG/5 ML VIAL IV PRN (06:43)
[2021-04-16] MEDS ORDERED: DIGOXIN 500 MCG/2 ML AMPUL IV SCH (07:15)
[2021-04-16] MEDS ORDERED: DIGOXIN 500 MCG/2 ML AMPUL IV ONE (07:15)
[2021-04-16 07:27] LABS: Hematocrit 28.4 % (40.1-51.0); Hemoglobin 9.6 g/dL (13.7-17.5); Mean Cell Volume 93.4 fL (80.0-100.0); Mean Corpuscular HGB Conc 33.8 g/dL (31.0-36.0); Mean Platelet Volume 9.1 fL (7.4-10.4); Platelet Count 266 K/mcL (140-440); RBC 3.04 M/mcL (4.63-6.08); Red Cell Distribution Width 16.9 % (11.5-14.5); WBC 23.3 K/mcL (4.5-11.0)
[2021-04-16] MEDS ORDERED: PANTOPRAZOLE 40 MG VIAL IV SCH (07:30)
[2021-04-16] MEDS ORDERED: IPRATROPIUM/ALBUTEROL 3 ML AMPUL.NEB NEB PRN ×2 (07:31→15:01)
--- NOTE | 2021-04-16 07:31 | Internal Medicine Consult Note ---
HPI Data of Consult Consult date: 04/16/21 Primary Care Provider: Trey Mckenzie Consult Narrative Patient Information: Note initiated : 04/16/21 at 7:27 am Service Date, if different from initiated Date: [] Patient: Jericho Costa a 89 y/o M admitted on 04/04/21 for Syncopal episode. Chief Complaint: [shortness of breath] Patient is a 89 years old gentleman initially admitted on April 04, 2021 for primary chronic pseudoobstruction of colon, status post right colectomy on the same day as well as ex lap on April 12, 2021. Consultations with ask for increasing shortness of breath as well as tachycardia/atrial fibrillation's. Yesterday patient was found to be very lethargic with pinpoint pupils after Dilaudid was being given. Since yesterday evening, patient was also found to be more shortness of breath. In addition, he was also found to be in atrial fibrillation with heart rate in the 140s beats per minute. His supplemental oxygen requirement was up to 10 L/min at a point. 1 dose of IV Lasix as well as 2 doses of IV metoprolol were given and now patient is currently on 2 L/min of oxygen's with a rate of breathing in the mid 20s and oxygen saturations in the high 90s. Patient is still lethargic. Patient heart rate is now controlled at 96 bpm. Otherwise patient is not able to provide any details in history due to his lethargy/clinical situations. cc:: CC: Laurel Beckford MD Review of Systems ROS unobtainable: due to mental status PFSH PFSH All Active Problems (Updated 04/16/21 @ 07:34 by Yosi Grayson MD) Acute respiratory failure with hypoxia (Acute) Congestive heart failure (Acute) Atrial fibrillation (Acute) Hypoalbuminemia due to protein-calorie malnutrition (Acute) Anasarca (Acute) Alteration in bowel elimination due to postoperative ileus (Acute) Postoperative anemia due to acute blood loss (Acute) Primary chronic pseudo-obstruction of colon (Acute) History of coronary artery disease (Acute) Cecal volvulus (Acute) Syncope (Acute) Medical History (Updated 04/16/21 @ 07:34 by Yosi Grayson MD) Coronary artery disease involving coronary bypass graft Social History (Updated 04/04/21 @ 15:14 by Laurel Beckford MD) household members: alone housing: house marital status: occupational status: retired physical activity: walking frequency: 3-4 times per week duration: 15-30 minutes/day smoking status: Never smoker alcohol intake frequency: does not drink substance use type: does not use MEDS/ALLERGIES Home Medications and Allergies Home Medications Medication Instructions Recorded Confirmed Type atenolol 50 mg PO DAILY 04/04/21 04/05/21 History isosorbide mononitrate 60 mg PO DAILY 04/04/21 04/05/21 History lovastatin 40 mg PO QDAY 04/04/21 04/05/21 History tamsulosin 0.8 mg PO DAILY 04/04/21 04/05/21 History Allergies Allergy/AdvReac Type Severity Reaction Status Date / Time hydrocodone Allergy Mild HIVES Verified 04/04/21 19:32 EXAM Constitutional Vitals: Temp Pulse Resp BP Pulse Ox 37.6 C H 87 26 H 132/72 96 04/16/21 05:47 04/16/21 06:01 04/16/21 06:01 04/16/21 06:01 04/16/21 06:01 General appearance: disheveled and no acute distress; no cooperative Head Head exam: Present atraumatic and normocephalic Eye Eye exam: Present EOMI and PERRL ENT ENT exam: Present mucous membranes moist, normal exam and normal external ear exam Additional comments: Nasal cannula in place Neck Neck exam: Present normal inspection; Absent lymphadenopathy, tenderness and thyromegaly Respiratory Respiratory exam: Present rhonchi; Absent accessory muscle use, respiratory distress and wheezes Cardiovascular Cardiovascular exam: Present normal rate and rhythm; Absent JVD GI/Abdominal GI/Abdominal exam: Present soft and diminished bowel sounds; Absent organomegaly and tenderness Additional comments: Ventral abdomen surgical sites with nicholas in place SHRUTHI drain X1 Rectal Rectal exam: Present deferred Additional comments: Valerio catheter in place Extremities Exam Extremities exam: Present full ROM, normal capillary refill, normal inspection and pedal edema; Absent tenderness Neurological Exam Neurological exam: Present alert, CN II-XII intact and oriented X3; Absent motor sensory deficit Psychiatric Psychiatric exam: Present normal affect and normal mood; Absent anxious and depressed Skin Skin exam: Present dry and intact DATA Data Completed and Pending Labs: Labs from last 24 hours 1004/16/21 04/15/21 06:32 06:32 23:59 WBC Pending RBC Pending Hgb Pending Hct Pending MCV Pending MCH Pending MCHC Pending RDW Pending Plt Count Pending MPV Pending Neut % (Auto) Lymph % (Auto) [place] % (Auto) Eos % (Auto) Baso % (Auto) Lymph # (Auto) [place] # (Auto) Eos # (Auto) Baso # (Auto) Absolute Neutrophils Platelet Estimate Pending RBC Morphology Pending Sodium Pending Potassium Pending Chloride Pending Carbon Dioxide Pending Anion Gap Pending BUN Pending Creatinine Pending GFR Calculation Pending Glucose Pending Uric Acid Pending Calcium Pending Phosphorus Pending Magnesium Pending Total Bilirubin Pending Direct Bilirubin Pending GGT Pending AST Pending ALT Pending Alkaline Phosphatase Pending Lactate Dehydrogenase Pending NT-Pro-B Natriuret Pep 76318.0 H Total Protein Pending Albumin Pending Globulin Pending Albumin/Globulin Ratio Pending Triglycerides Pending 04/15/21 04/15/21 04/15/21 22:14 05:44 05:44 WBC 21.9 H 18.0 H RBC 3.30 L 3.43 L Hgb 10.3 L 10.7 L Hct 31.2 L 32.3 L MCV 94.5 94.2 MCH 31.2 31.2 MCHC 33.0 33.1 RDW 16.9 H 17.1 H Plt Count 311 299 MPV 9.0 9.1 Neut % (Auto) 90.9 H 87.1 H Lymph % (Auto) 7.1 L 10.5 L [place] % (Auto) 1.8 2.2 Eos % (Auto) 0 0 Baso % (Auto) 0.2 0.2 Lymph # (Auto) 1.55 1.89 [place] # (Auto) 0.40 0.40 Eos # (Auto) 0 0 Baso # (Auto) 0.05 0.04 Absolute Neutrophils 19.89 H 15.68 H Platelet Estimate RBC Morphology Sodium 143 Potassium 3.2 L Chloride 114 H Carbon Dioxide 19 L Anion Gap 10.0 BUN 23 Creatinine 1.0 GFR Calculation 67 Glucose 130 H Uric Acid 3.2 Calcium 8.1 L Phosphorus 2.7 Magnesium 2.0 Total Bilirubin 0.6 Direct Bilirubin 0.3 H GGT 150 H AST 32 ALT 14 Alkaline Phosphatase 176 H Lactate Dehydrogenase 297 H NT-Pro-B Natriuret Pep Total Protein 5.7 L Albumin 2.5 L Globulin 3.2 Albumin/Globulin Ratio 0.8 L Triglycerides 143 A/P Assessment and plan (1) Postoperative anemia due to acute blood loss: Status: Acute (2) Primary chronic pseudo-obstruction of colon: Status: Acute (3) Atrial fibrillation: Status: Acute (4) Congestive heart failure: Status: Acute (5) Acute respiratory failure with hypoxia: Status: Acute Narrative A/P Narrative: Assessment and Plans: 1. Acute respiratory failure with hypoxia secondary to congestive heart failure: Supplemental oxygen therapy titrate to achieve spo2 >=92% Chest X ray pending 2D echocardiogram Lasix 40mg IV BID Strict intake and output measure Daily weight 2. Atrial fibrillation: ECG 2D echocardiogram Lopressor IV PRN HG>120 bpm Digoxin IV daily, daily Digoxin level [id number] score of 3, elevated stroke/DVT risk. Anticoagulation defer given post-operative status, anemia, and overall poor prognosis 3. s/p right colectomy and ex lap: Management as per primary team Dr. Beckford NPO with TPN d/c Dilaudid given degree of lethargy Heparin IV PPI 4. Post operative anemia: cbc w/ auto diff in the morning to trend H/H; transfuse pRBC if hemoglobin <7.0, active bleeding, or symptomatic GI ppx: IV PPI DVT ppx: Heparin Code status: Full Prognosis: extremely guarded Disposition: inpatient PCU Time Spent With Patient Time: Total time spent is greater than 50% in coordination of care (as documented) at patient's floor/unit and/or counseling patient: Total time spent with greater than 50% in coordination of care (as documented) at patient's floor/unit and/or counseling patient:: Greater than 35 minutes
[2021-04-16] MEDS ORDERED: LACTOPEROXI/GLUC OXID/POT THIO 1 EACH GEL..EA. TOPICAL PRN (07:33)
[2021-04-16 07:57] LABS: ALT/SGPT 13 U/L (<40); AST/SGOT 28 U/L (<40); Albumin 2.2 gm/dL (3.2-5.2); Albumin/Globulin Ratio 0.8 (1.0-2.3); Alkaline Phosphatase 138 U/L (39-117); Bilirubin,Direct 0.3 mg/dL (<0.3); Bilirubin,Total 0.6 mg/dL (0.1-1.0); Blood Urea Nitrogen 19 mg/dL (8-23); Carbon Dioxide 21 mmol/L (22-30); Chloride 110 mmol/L (96-108); Globulin 2.8 gm/dL (2.2-3.7); Glomerular Filtration Rate 67; Glucose 155 mg/dL (70-105); Lactate Dehydrogenase 271 U/L (135-225); Phosphorous 2.4 mg/dL (2.5-4.5); Triglycerides 108 mg/dL (<150); Uric Acid 2.4 mg/dL (2.5-8.0)
[2021-04-16] MEDS ORDERED: FUROSEMIDE 40 MG/4 ML VIAL IV SCH (08:00)
--- NOTE | 2021-04-16 08:02 | XRay Report ---
HISTORY: Fluid overload FINDINGS: There are moderate generalized infiltrates in both lungs with the greatest involvement centrally in the left lung. There has been mild improvement bilaterally since 04/13/21. There may be a tiny right-sided pleural effusion. The heart is mildly enlarged. PICC line has been pulled back and the tip is at the boundary of the superior vena cava and right atrium. Free intraperitoneal air is again noted. This has diminished in volume. There still dilated loops of small intestine in the upper abdomen. IMPRESSION: Slowly improving bilateral pulmonary infiltrates. Persistent abnormally dilated small intestine Improving free intra-abdominal air Interpreted and Authenticated by: Luis Miguel Spangler 04/16/21
[2021-04-16 09:06] LABS: Anisocytosis 1+ (None Seen); Eosinophils % (Manual) 4 % (0-7); Lymphocytes % 4 % (15-49); Monocytes % (Manual) 3 % (1-12); Platelet Estimate NORMAL (Normal); RBC Morphology ABNORMAL (Normal); Segmented Neutrophils % 89 % (38-78)
[2021-04-16] MEDS: NYSTATIN 500,000 UNITS/5 ML ORAL.SUSP SSW SCH ×2 (09:32→15:03)
--- NOTE | 2021-04-16 09:55 | XRay Report ---
HISTORY: Pulmonary infiltrates, small bowel obstruction, syncopal episode FINDINGS: Moderate generalized infiltrates are present in both lungs. There has been persistent gradual improvement compared with the prior exams on 04/13 and 04/15/2021. The heart is mildly enlarged. There may be a tiny right-sided pleural effusion. The PICC line remains well-positioned. The free intra-abdominal air continues to slowly reabsorb. There are still dilated loops of small intestine in the epigastrium which have not changed. IMPRESSION: Slowly improving bilateral pulmonary infiltrates Persistent small bowel obstruction Interpreted and Authenticated by: Luis Miguel Spangler 04/16/21
--- NOTE | 2021-04-16 09:59 | XRay Report ---
HISTORY: Small bowel obstruction, recent abdominal surgery FINDINGS: There are persistent dilated segments of small intestine in the upper abdomen which measure up to 4.8 cm in transverse diameter. Few air fluid levels are present. The abnormal segment of bowel seen in the left epigastrium on 04/15/21, which had thickened and edematous mucosal folds has improved. The volume of free intraperitoneal air continues to slowly reabsorb. Large intestine is nondistended. There is a drain in the left side of the pelvis. IMPRESSION: Persistent partial small bowel obstruction Interpreted and Authenticated by: Luis Miguel Spangler 04/16/21
--- NOTE | 2021-04-16 10:43 | EKG ---
[facility] Test Date: 2021-04-16 Pat Name: Jericho Costa Department: ICU Room: 120C Gender: Male Payroll Representative: : [id number] Requested By: Yosi Grayson Order Number: [id number] Reading MD: Stef Reveles Measurements Intervals [place] Rate: 101 P: [place]: QRS: 8 QRSD: 94 T: 170 QT: 356 QTc: 462 Interpretive Statements ATRIAL FIBRILLATION, V-RATE 80-121 NONSPECIFIC T ABNORMALITIES, LATERAL LEADS Not significantly changed from prior Electronically Signed On 04-16-2021 10:42:39 PDT by Stef Reveles /store/M0/[id number]
[2021-04-16] MEDS ORDERED: ASPIRIN 81 MG TAB.CHEW CHEWED ONE (10:54)
[2021-04-16] MEDS ORDERED: [UNRECOGNIZED DRUG - OTHER] IV SCH (11:00)
[2021-04-16] MEDS ORDERED: MAGNESIUM SULFATE IV SCH (11:00)
[2021-04-16] MEDS ORDERED: CALCIUM GLUCONATE IV SCH (11:00)
[2021-04-16] MEDS ORDERED: POTASSIUM PHOSPHATE IV SCH (11:00)
--- NOTE | 2021-04-16 11:02 | Cat Scan Report ---
History: Unresponsive, evaluate for stroke TECHNIQUE: The brain was imaged without contrast in axial plane at 2.5 mm intervals. There is a large acute nonhemorrhagic infarct in the right occipital lobe. It measures approximately 3.5 x 4.5 cm in size. This is a new finding since the prior CT done on 04/04/21. There is stable cerebral atrophy with the greatest involvement in the frontal lobes. There is no mass effect. Ventricles are prominent but proportionate to the atrophy. There is no abnormal extra-axial fluid collection. Stable age-related degenerative changes are seen in the white matter in the centrum semiovale. 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 Dr. Grayson was called at 10:45 AM Interpreted and Authenticated by: Luis Miguel Spangler 04/16/21
[2021-04-16] MEDS ORDERED: ATORVASTATIN 40 MG TABLET PO ONE (11:15)
--- NOTE | 2021-04-16 13:01 | General Surgery Progress Note ---
SUBJECTIVE Subjective Patient information: Note initiated : 04/16/21 at 12:53 pm Service Date, if different from initiated Date: [] Patient: Jericho Costa 89 y/o M admitted on 04/04/21 for Syncopal episode. Chief Complaint: [] Principal diagnosis: Colonic pseudoobstruction with volvulus Interval history: Patient has gradually deteriorated since yesterday. He had an acute episode last evening with hypoxemia due to respiratory insufficiency. He improved after receiving pulmonary toilet and IV Lasix. He however has become more nonresponsive since then. His respiratory status is marginal but is holding steady however he has decreased movement on his right side. He has been seen by the hospitalist and CT of the brain shows an occipital infarct that is acute. Family conference was held with his sister and [id number] and they will bring by his legal papers for resuscitative status. Echocardiogram was done but the reading is not available so far. Preliminary reading suggest that his ejection fraction is significantly reduced. If the final read supports significant cardiomyopathy probable that he will be made comfort care which would be his wishes Constitutional Vitals: Vital Signs Temp Pulse Resp BP Pulse Ox 98.8 F 46 L 32 H 118/70 100 04/16/21 11:59 04/16/21 11:59 04/16/21 11:59 04/16/21 11:59 04/16/21 11:59 Period Temp Pulse Resp BP Sys/Farias Pulse Ox Last 24 Hr 98 F-99.6 F 46-115 16-32 108-158/64-90 78-100 Intake and Output 04/15/21 04/16/21 04/16/21 21:59 05:59 13:59 Intake Total 171 931 5860.9852 Output Total 1055 2455 1440 Balance -205 -2205 1525.9852 Weight 183 lb 6 oz Intake & Output: Intake & Output 04/15/21 04/16/21 04/16/21 21:59 05:59 13:59 Intake Total 308 512 6065.9852 Output Total 1055 2455 1440 Balance -205 -2205 1525.9852 Weight 183 lb 6 oz Intake: IV 617 789 3816.9852 Sodium Chloride 0.9% 1,000 ml @ 650 75 mls/hr IV [id number] Rx#: [id number] OFIRMEV 1,000 mg In 100 ml @ 0 100 mls/hr IV .[facility] Rx#: [id number] Calcium Gluconate 5 Meq 2765.9852 Magnesium Sulfate 4.06 Meq Potassium Chloride 20 Meq Potassium Phosphate 20 Meq Infuvite Adult 10 ml In Clinimix 5%-20% Solution 1,000 ml @ 35 mls/hr IV Q24H [facility] Rx#: [id number] Zosyn 2.25 gm In Dextrose 5% in 100 50 100 Water 50 ml @ 100 mls/hr IV Q6H [facility] Rx#:[id number] Output: Drainage 280 280 140 Right Lower Abdomen 280 280 140 Drainage 425 Right Lower Abdomen 425 Urine Catheter Amount 1925 1300 Void Amount 350 250 Other: Urine Appearance Clear Sediment Reinserted Valerio Sediment Urine Color Bright Yellow Straw Bright Yellow Reinserted Valerio Bright Yellow Bright Yellow Urine Odor Normal Stool Size Moderate Stool Color Brown Green Stool Consistency Liquid Loose # of times incontinent of 1 Bowels Exam: Poorly responsive with labored respirations Head Head exam: Present atraumatic and normal inspection Eye Eye exam: Present EOMI, normal appearance and PERRL ENT ENT exam: Present mucous membranes dry Neck Neck exam: Present full ROM and normal inspection Respiratory Respiratory exam: Present accessory muscle use, rales, respiratory distress, rhonchi and wheezes Cardiovascular Cardiovascular exam: Present irregular rhythm, JVD, +S1, +S2 and tachycardia GI/Abdominal GI/Abdominal exam: Present diminished bowel sounds and distended Extremities Exam Additional comments: 3+ edema bilaterally with associated generalized anasarca Neurological Exam Additional comments: Altered mental status Significant reduction in movement of right upper extremity Psychiatric Psychiatric exam: Present depressed and flat affect A/P Assessment and plan (1) Acute respiratory failure with hypoxia: Status: Acute (2) Congestive heart failure: Status: Acute (3) Atrial fibrillation: Status: Acute (4) Hypoalbuminemia due to protein-calorie malnutrition: Status: Acute (5) Anasarca: Status: Acute (6) Primary chronic pseudo-obstruction of colon: Status: Acute (7) History of coronary artery disease: Status: Acute (8) Cardiomyopathy: Status: Acute Narrative A/P Narrative: Will continue to support until final discussion is completed concerning comfort care or continuation of aggressive care Time Spent With Patient Time: Total time spent is greater than 50% in coordination of care (as documented) at patient's floor/unit and/or counseling patient:
[2021-04-16] MEDS ORDERED: LORazepam 2 MG/ML VIAL IV PRN ×2 (14:10→15:01)
[2021-04-16] MEDS ORDERED: morphine 4 MG/ML VIAL IV PRN (14:10)
[2021-04-16] MEDS ORDERED: FAT EMULSION 20% 250 ML in PREMIX 1 BAG IV SCH (16:00)
[2021-04-16] MEDS: morphine 4 MG/ML VIAL IV PRN ×4 (16:17→20:38)
[2021-04-16] MEDS ORDERED: 0.9 % SODIUM CHLORIDE 10 ML SYRINGE IV SCH (22:00)
[2021-04-17] MEDS: LACTOPEROXI/GLUC OXID/POT THIO 1 EACH GEL..EA. TOPICAL PRN ×5 (01:08→18:53)
[2021-04-17] MEDS: morphine 4 MG/ML VIAL IV PRN ×9 (02:43→23:56)
[2021-04-17] MEDS: ACETAMINOPHEN 1,000 MG/100 ML BAG IV SCH ×4 (04:00→21:45)
[2021-04-17] MEDS ORDERED: ATORVASTATIN 40 MG TABLET PO SCH (09:00)
[2021-04-17] MEDS ORDERED: SCOPOLAMINE 1 PATCH PATCH TOPICAL SCH (12:00)
[2021-04-17] MEDS ORDERED: DIGOXIN 500 MCG/2 ML AMPUL IV SCH (14:00)
--- NOTE | 2021-04-17 15:27 | General Surgery Progress Note ---
SUBJECTIVE Subjective Patient information: Note initiated : 04/17/21 at 3:24 pm Service Date, if different from initiated Date: [] Patient: Jericho Costa 89 y/o M admitted on 04/04/21 for Syncopal episode. Chief Complaint: [] Principal diagnosis: Colonic pseudoobstruction with volvulus Interval history: patient is on comfort care. He is nonresponsive to stimuli. He has labored respirations. Vital signs are not being taken. Chest is full of coarse rhonchi rales and wheezes. He has palpable radial and lower extremity pulses and perfusion is good. Had a short discussion with family members and they are understanding and accepts the inevitable. No changes in therapy mandated. Constitutional Vitals: Vital Signs Temp Pulse Resp BP Pulse Ox 98.8 F 108 H 31 H 144/63 99 04/16/21 11:59 04/16/21 13:36 04/16/21 13:36 04/16/21 13:36 04/16/21 13:36 Intake and Output 04/17/21 04/17/21 04/17/21 05:59 13:59 21:59 Intake Total 200 100 Output Total 480 Balance -280 100 Intake & Output: Intake & Output 04/17/21 04/17/21 04/17/21 05:59 13:59 21:59 Intake Total 200 100 Output Total 480 Balance -280 100 Intake: IV 200 100 Output: Drainage 130 Right Lower Abdomen 130 Urine Catheter Amount 350 Other: Urine Appearance Clear Urine Color Bright Yellow A/P Assessment and plan (1) Acute respiratory failure with hypoxia: Status: Acute (2) Congestive heart failure: Status: Acute (3) Atrial fibrillation: Status: Acute (4) Hypoalbuminemia due to protein-calorie malnutrition: Status: Acute (5) Anasarca: Status: Acute (6) Primary chronic pseudo-obstruction of colon: Status: Acute (7) History of coronary artery disease: Status: Acute (8) Cardiomyopathy: Status: Acute Narrative A/P Narrative: Continue comfort care Time Spent With Patient Time: Total time spent is greater than 50% in coordination of care (as documented) at patient's floor/unit and/or counseling patient:
--- NOTE | 2021-04-17 19:34 | Internal Med Progress Note ---
SUBJECTIVE Subjective Patient information: Note initiated : 04/17/21 at 7:34 pm Service Date, if different from initiated Date: [] Patient: Jericho Costa 89 y/o M admitted on 04/04/21 for Syncopal episode. Chief Complaint: Follow-up comfort care Principal diagnosis: Colonic pseudoobstruction with volvulus Interval history: 04/16: Patient is a 89 years old gentleman initially admitted on April 04, 2021 for primary chronic pseudoobstruction of colon, status post right colectomy on the same day as well as ex lap on April 12, 2021. Consultations with ask for increasing shortness of breath as well as tachycardia/atrial fibrillation. Yesterday patient was found to be very lethargic with pinpoint pupils after Di laudid was being given. Since yesterday evening, patient was also found to be more short of breath. In addition, he was also found to be in atrial fibrillation with heart rate in the 140s beats per minute. His supplemental oxygen requirement was up to 10 L/min at a point. 1 dose of IV Lasix as well as 2 doses of IV metoprolol were given and now patient is currently on 2 L/min of oxygen's with a rate of breathing in the mid 20s and oxygen saturations in the high 90s. Patient is still lethargic. Patient heart rate is now controlled at 96 bpm. Otherwise patient is not able to provide any details in history due to his lethargy/clinical situations. 04/17: Patient had fairly abrupt onset of right-sided weakness yesterday at about 10:[address] suggestive of significant stroke. After discussion between Dr. Beckford and the family, comfort measures are being pursued. Patient currently on comfort care. He has lorazepam and morphine ordered for air hunger, pain or agitation. Scopolamine patch was added for significant airway "rattling" Constitutional Vitals: Vital Signs Temp Pulse Resp BP Pulse Ox 98.8 F 108 H 22 144/63 99 04/16/21 11:59 04/16/21 13:36 04/17/21 18:47 04/16/21 13:36 04/16/21 13:36 Period Temp Pulse Resp BP Sys/Farias Pulse Ox Last 24 Hr 22 Intake and Output 04/17/21 04/17/21 04/17/21 05:59 13:59 21:59 Intake Total 200 100 100 Output Total 480 350 Balance -280 100 -250 Weight 149 lb 6 oz Patient Weight 04/18/21 05:59 Weight 149 lb 6 oz Intake & Output: Intake & Output 04/17/21 04/17/21 04/17/21 05:59 13:59 21:59 Intake Total 200 100 100 Output Total 480 350 Balance -280 100 -250 Weight 149 lb 6 oz Intake: IV 200 100 100 Output: Drainage 130 Right Lower Abdomen 130 Urine Catheter Amount 350 350 Other: Urine Appearance Clear Urine Color Bright Yellow Tea Colored GENERAL: Unresponsive RESPIRATORY: Coarse bilateral breath sounds CARDIOVASCULAR: Irregular pulse EXTREMITIES: Warm NEURO: Unresponsive OBJ DATA Labs CBC & Chem 7: 04/16/21 06:32 04/16/21 06:32 Labs: Abnormal Lab Results 04/16/21 04/16/21 04/15/21 06:32 06:32 23:59 WBC 23.3 H RBC 3.04 L Hgb 9.6 L Hct 28.4 L RDW 16.9 H Neut % (Auto) Lymph % (Auto) Seg Neutrophils % 89 H Lymphocytes % 4 L Absolute Neutrophils RBC Morphology Abnormal A Anisocytosis 1+ A Potassium Chloride 110 H Carbon Dioxide 21 L Anion Gap 7.0 L Glucose 155 H Uric Acid 2.4 L Calcium 8.0 L Phosphorus 2.4 L Direct Bilirubin 0.3 H GGT 129 H Alkaline Phosphatase 138 H Lactate Dehydrogenase 271 H NT-Pro-B Natriuret Pep 08749.0 H Total Protein 5.0 L Albumin 2.2 L Albumin/Globulin Ratio 0.8 L 04/15/21 04/15/21 04/15/21 22:14 05:44 05:44 WBC 21.9 H 18.0 H RBC 3.30 L 3.43 L Hgb 10.3 L 10.7 L Hct 31.2 L 32.3 L RDW 16.9 H 17.1 H Neut % (Auto) 90.9 H 87.1 H Lymph % (Auto) 7.1 L 10.5 L Seg Neutrophils % Lymphocytes % Absolute Neutrophils 19.89 H 15.68 H RBC Morphology Anisocytosis Potassium 3.2 L Chloride 114 H Carbon Dioxide 19 L Anion Gap Glucose 130 H Uric Acid Calcium 8.1 L Phosphorus Direct Bilirubin 0.3 H GGT 150 H Alkaline Phosphatase 176 H Lactate Dehydrogenase 297 H NT-Pro-B Natriuret Pep Total Protein 5.7 L Albumin 2.5 L Albumin/Globulin Ratio 0.8 L Meds: Medications Albuterol/Ipratropium (Ipratropium/Albuterol 3 Ml Ampul.Neb) 3 ml NEB Q4HP PRN PRN Reason: Shortness Of Breath Glucose Oxid/Lactoperoxid/Muramidas (Lactoperoxi/Gluc Oxid/Pot Thio 1 Each G el..Ea.) 1 each TOPICAL PRN PRN PRN Reason: Dry Mouth Last Admin: 04/17/21 18:53 Dose: 1 each Documented by: Acetaminophen ([facility]) 1,000 mg in 100 mls @ 200 mls/hr IV Q6H [facility] Last Infusion: 04/17/21 17:03 Dose: Infused Documented by: Lorazepam (Lorazepam 2 Mg/Ml Vial) 0 mg IV Q1HP PRN; Protocol PRN Reason: ANXIETY/SEDATION Last Admin: 04/17/21 16:11 Dose: 1 mg Documented by: Morphine Sulfate (Morphine 4 Mg/Ml Vial) 2 - 6 mg IV Q1HP PRN; Protocol PRN Reason: Per Pain Protocol Last Admin: 04/17/21 18:51 Dose: 4 mg Documented by: Ondansetron HCl (Ondansetron 4 Mg/2 Ml Vial) 4 mg IV Q6HP PRN PRN Reason: Nausea And Vomiting Scopolamine (Scopolamine 1 Patch Patch) 1 patch TOPICAL Q72H [facility] Last Admin: 04/17/21 11:59 Dose: 1 patch Documented by: Sodium Chloride (0.9 % Sodium Chloride 10 Ml Syringe) 10 ml IV UD PRN PRN Reason: FLUSH Imaging and cardiology CT scan - head: Additional comments: IMPRESSION: Large nonhemorrhagic infarct in the right occipital lobe. A/P Narrative A/P Narrative: Assessment: Acute right occipital ischemic CVA -Abrupt onset of right-sided weakness a.m. 04/16 -CVA noted on CT of head -After family conference with Dr. Beckford, family has transitioned patient to comfort care Acute respiratory failure with hypoxia secondary to congestive heart failure: -Echocardiogram with moderately reduced ejection fraction, EF 30-35% -Improved after diuresis and atrial fibrillation rate control -Now transition to comfort care Atrial fibrillation -Rate controlled initially -Subsequently active treatment stopped due to transition to comfort care S/P right colectomy and ex lap -Now transitioned to comfort care Plan: * Continue morphine and lorazepam for pain, anxiety and air hunger * Continue scopolamine * Monitor for any discomfort and treat QUALITY VTE Deep Vein Thrombosis/Pulmonary Embolism Present on Admission: No
[2021-04-17] MEDS: 0.9 % SODIUM CHLORIDE 10 ML SYRINGE IV PRN (21:46)
[2021-04-18] MEDS: ACETAMINOPHEN 1,000 MG/100 ML BAG IV SCH ×4 (03:20→22:20)
[2021-04-18] MEDS: morphine 4 MG/ML VIAL IV PRN ×6 (03:20→17:18)
--- NOTE | 2021-04-18 09:44 | General Surgery Progress Note ---
SUBJECTIVE Subjective Patient information: Note initiated : 04/18/21 at 9:41 am Service Date, if different from initiated Date: [] Patient: Jericho Costa 89 y/o M admitted on 04/04/21 for Syncopal episode. Chief Complaint: [] Seems to be resting comfortably this am, non responsive to verbal stimuli but doesn't appear to be in any distress Principal diagnosis: Colonic pseudoobstruction with volvulus Constitutional Vitals: Vital Signs Temp Pulse Resp BP Pulse Ox 98.8 F 108 H 22 144/63 99 04/16/21 11:59 04/18/21 05:39 04/18/21 05:39 04/16/21 13:36 04/18/21 05:39 Period Temp Pulse Resp BP Sys/Farias Pulse Ox Last 24 Hr 108 22-22 99 Intake and Output 04/17/21 04/18/21 04/18/21 21:59 05:59 13:59 Intake Total 100 200 Output Total 350 130 500 Balance -250 70 -500 Weight 149 lb 6 oz Intake & Output: Intake & Output 04/17/21 04/18/21 04/18/21 21:59 05:59 13:59 Intake Total 100 200 Output Total 350 130 500 Balance -250 70 -500 Weight 149 lb 6 oz Intake: IV 100 200 Output: Drainage 130 Right Lower Abdomen 130 Urine Catheter Amount 350 500 Other: Urine Appearance Clear Urine Color Tea Colored Tea Colored Reinserted Valerio Straw General appearance: no acute distress GI/Abdominal Additional comments: drains appear benign, belly soft and flat, midline incision looks intact and without issue A/P Narrative A/P Narrative: Currently on Comfort Care with supportive measures only Abdominal exam seems benign without issue Will continue to follow along, no mgmt changes suggested at this time Time Spent With Patient Time: Total time spent is greater than 50% in coordination of care (as documented) at patient's floor/unit and/or counseling patient:
[2021-04-18] MEDS: LACTOPEROXI/GLUC OXID/POT THIO 1 EACH GEL..EA. TOPICAL PRN (09:58)
--- NOTE | 2021-04-18 11:05 | Internal Med Progress Note ---
SUBJECTIVE Subjective Patient information: Note initiated : 04/18/21 at 11:03 am Service Date, if different from initiated Date: [] Patient: Jericho Costa 89 y/o M admitted on 04/04/21 for Syncopal episode. Chief Complaint: [] Principal diagnosis: Colonic pseudoobstruction with volvulus Interval history: 04/16: Patient is a 89 years old gentleman initially admitted on April 04, 2021 for primary chronic pseudoobstruction of colon, status post right colectomy on the same day as well as ex lap on April 12, 2021. Consultations with ask for increasing shortness of breath as well as tachycardia/atrial fibrillation. Yesterday patient was found to be very lethargic with pinpoint pupils after Dilaudid was being given. Since yesterday evening, patient was also found to be more short of breath. In addition, he was also found to be in atrial fibrillation with heart rate in the 140s beats per minute. His supplemental oxygen requirement was up to 10 L/min at a point. 1 dose of IV Lasix as well as 2 doses of IV metoprolol were given and now patient is currently on 2 L/min of oxygen's with a rate of breathing in the mid 20s and oxygen saturations in the high 90s. Patient is still lethargic. Patient heart rate is now controlled at 96 bpm. Otherwise patient is not able to provide any details in history due to his lethargy/clinical situations. 04/17: Patient had fairly abrupt onset of right-sided weakness yesterday at about 10:[address] suggestive of significant stroke. After discussion between Dr. Beckford and the family, comfort measures are being pursued. Patient currently on comfort care. He has lorazepam and morphine ordered for air hunger, pain or agitation. Scopolamine patch was added for significant airway "rattling" 04/18: Remains unresponsive to voice and touch. Appears to be comfortable. Olamide- colored urine in Valerio bag. Constitutional Vitals: Vital Signs Temp Pulse Resp BP Pulse Ox 98.8 F 108 H 22 144/63 99 04/16/21 11:59 04/18/21 05:39 04/18/21 05:39 04/16/21 13:36 04/18/21 05:39 Period Temp Pulse Resp BP Sys/Farias Pulse Ox Last 24 Hr 108 22-22 99 Intake and Output 10/30/21 10/31/21 10/31/21 21:59 05:59 13:59 Intake Total 100 200 100 Output Total 350 130 500 Balance -250 70 -400 Weight 149 lb 6 oz Intake & Output: Intake & Output 04/17/21 04/18/21 04/18/21 21:59 05:59 13:59 Intake Total 100 200 100 Output Total 350 130 500 Balance -250 70 -400 Weight 149 lb 6 oz Intake: IV 100 200 100 Output: Drainage 130 Right Lower Abdomen 130 Urine Catheter Amount 350 500 Other: Urine Appearance Clear Urine Color Tea Colored Tea Colored Reinserted Valerio Straw GENERAL: Unresponsive RESPIRATORY: Coarse breath sounds bilaterally CARDIOVASCULAR: Irregular NEURO: Not responsive OBJ DATA Labs CBC & Chem 7: 04/16/21 06:32 04/16/21 06:32 Labs: Abnormal Lab Results 04/16/21 04/16/21 04/15/21 06:32 06:32 23:59 WBC 23.3 H RBC 3.04 L Hgb 9.6 L Hct 28.4 L RDW 16.9 H Neut % (Auto) Lymph % (Auto) Seg Neutrophils % 89 H Lymphocytes % 4 L Absolute Neutrophils RBC Morphology Abnormal A Anisocytosis 1+ A Chloride 110 H Carbon Dioxide 21 L Anion Gap 7.0 L Glucose 155 H Uric Acid 2.4 L Calcium 8.0 L Phosphorus 2.4 L Direct Bilirubin 0.3 H GGT 129 H Alkaline Phosphatase 138 H Lactate Dehydrogenase 271 H NT-Pro-B Natriuret Pep 61008.0 H Total Protein 5.0 L Albumin 2.2 L Albumin/Globulin Ratio 0.8 L 04/15/21 22:14 WBC 21.9 H RBC 3.30 L Hgb 10.3 L Hct 31.2 L RDW 16.9 H Neut % (Auto) 90.9 H Lymph % (Auto) 7.1 L Seg Neutrophils % Lymphocytes % Absolute Neutrophils 19.89 H RBC Morphology Anisocytosis Chloride Carbon Dioxide Anion Gap Glucose Uric Acid Calcium Phosphorus Direct Bilirubin GGT Alkaline Phosphatase Lactate Dehydrogenase NT-Pro-B Natriuret Pep Total Protein Albumin Albumin/Globulin Ratio Meds: Medications Albuterol/Ipratropium (Ipratropium/Albuterol 3 Ml Ampul.Neb) 3 ml NEB Q4HP PRN PRN Reason: Shortness Of Breath Glucose Oxid/Lactoperoxid/Muramidas (Lactoperoxi/Gluc Oxid/Pot Thio 1 Each Gel..Ea.) 1 each TOPICAL PRN PRN PRN Reason: Dry Mouth Last Admin: 04/18/21 09:58 Dose: 1 each Documented by: Acetaminophen (Ofirmev) 1,000 mg in 100 mls @ 200 mls/hr IV Q6H DANE Last Infusion: 04/18/21 10:28 Dose: Infused Documented by: Lorazepam (Lorazepam 2 Mg/Ml Vial) 0 mg IV Q1HP PRN; Protocol PRN Reason: ANXIETY/SEDATION Last Admin: 04/17/21 16:11 Dose: 1 mg Documented by: Morphine Sulfate (Morphine 4 Mg/Ml Vial) 2 - 6 mg IV Q1HP PRN; Protocol PRN Reason: Per Pain Protocol Last Admin: 04/18/21 09:58 Dose: 4 mg Documented by: Ondansetron HCl (Ondansetron 4 Mg/2 Ml Vial) 4 mg IV Q6HP PRN PRN Reason: Nausea And Vomiting Scopolamine (Scopolamine 1 Patch Patch) 1 patch TOPICAL Q72H DANE Last Admin: 04/17/21 11:59 Dose: 1 patch Documented by: Sodium Chloride (0.9 % Sodium Chloride 10 Ml Syringe) 10 ml IV UD PRN PRN Reason: FLUSH Last Admin: 04/17/21 21:46 Dose: 10 ml Documented by: A/P Narrative A/P Narrative: Assessment: Acute right occipital ischemic CVA -Abrupt onset of right-sided weakness a.m. 04/16 -CVA noted on CT of head -After family conference with Dr. Beckford, family has transitioned patient to comfort care Acute respiratory failure with hypoxia secondary to congestive heart failure: -Echocardiogram with moderately reduced ejection fraction, EF 30-35% -Improved after diuresis and atrial fibrillation rate control -Now transition to comfort care Atrial fibrillation -Rate controlled initially -Subsequently active treatment stopped due to transition to comfort care S/P right colectomy and ex lap -Now transitioned to comfort care Plan: * Continue morphine and lorazepam for pain, anxiety and air hunger * Continue scopolamine * Monitor for any discomfort and treat Time Spent With Patient Time: Total time spent is greater than 50% in coordination of care (as documented) at patient's floor/unit and/or counseling patient: QUALITY VTE Deep Vein Thrombosis/Pulmonary Embolism Present on Admission: No
[2021-04-18] MEDS: 0.9 % SODIUM CHLORIDE 10 ML SYRINGE IV PRN (22:20)
[2021-04-19] MEDS: morphine 4 MG/ML VIAL IV PRN ×5 (02:00→17:09)
[2021-04-19] MEDS: 0.9 % SODIUM CHLORIDE 10 ML SYRINGE IV PRN ×2 (02:01→04:14)
[2021-04-19] MEDS: ACETAMINOPHEN 1,000 MG/100 ML BAG IV SCH ×3 (04:13→15:44)
[2021-04-19] MEDS: LACTOPEROXI/GLUC OXID/POT THIO 1 EACH GEL..EA. TOPICAL PRN ×2 (07:19→15:48)
--- NOTE | 2021-04-19 13:57 | General Surgery Progress Note ---
SUBJECTIVE Subjective Patient information: Note initiated : 04/19/21 at 1:57 pm Service Date, if different from initiated Date: [] Patient: Jericho Costa 89 y/o M admitted on 04/04/21 for Syncopal episode. Chief Complaint: [] Principal diagnosis: Colonic pseudoobstruction with volvulus Interval history: patient is on comfort care. He is nonresponsive to stimuli. He has labored respirations. Vital signs are not being taken. Chest is full of coarse rhonchi rales and wheezes. He has palpable radial and lower extremity pulses and perfusion is good. Had a short discussion with family members and they are understanding and accepts the inevitable. No changes in therapy mandated. Constitutional Vitals: Vital Signs Temp Pulse Resp BP Pulse Ox 98.8 F 112 H 24 H 144/63 92 04/16/21 11:59 04/19/21 07:54 04/18/21 22:59 04/16/21 13:36 04/19/21 07:54 Period Temp Pulse Resp BP Sys/Farias Pulse Ox Last 24 Hr 60-112 12-24 92-92 Intake and Output 04/18/21 04/19/21 04/19/21 21:59 05:59 13:59 Intake Total 100 200 100 Output Total 465 450 Balance -365 -250 100 Intake & Output: Intake & Output 04/18/21 04/19/21 04/19/21 21:59 05:59 13:59 Intake Total 100 200 100 Output Total 465 450 Balance -365 -250 100 Intake: IV 100 200 100 Output: Drainage 90 50 Right Lower Abdomen 90 50 Urine Catheter Amount 375 400 Other: Urine Appearance Clear Clear Reinserted Valerio Clear Clear Urine Color Red Brown Light Olamide Straw Reinserted Valerio Straw Straw Urine Odor Reinserted Valerio Normal Exam: Poorly responsive with labored respirations A/P Assessment and plan (1) Acute respiratory failure with hypoxia: Status: Acute (2) Congestive heart failure: Status: Acute (3) Atrial fibrillation: Status: Acute (4) Hypoalbuminemia due to protein-calorie malnutrition: Status: Acute (5) Anasarca: Status: Acute (6) Primary chronic pseudo-obstruction of colon: Status: Acute (7) History of coronary artery disease: Status: Acute (8) Cardiomyopathy: Status: Acute Narrative A/P Narrative: Continue comfort care Time Spent With Patient Time: Total time spent is greater than 50% in coordination of care (as doc umented) at patient's floor/unit and/or counseling patient:
--- NOTE | 2021-04-28 14:08 | Operative Note ---
DATE OF OPERATION: 04/12/2021 PREOPERATIVE DIAGNOSIS: Small bowel ileus with possible anastomotic leak. POSTOPERATIVE DIAGNOSES: Small bowel ileus with intact anastomosis with no evidence of leak. PROCEDURE: Exploratory laparotomy. SURGEON: Laurel Beckford M.D. FINDINGS: Dilated stomach, small bowel, and rectum. The ileosigmoid anastomosis was totally intact. There was no evidence of leak of any kind. He had some free, clear peritoneal fluid in the second or third space, but no other pathologic fluid. There was no evidence of any type of inflammatory process in the peritoneal cavity. DESCRIPTION OF PROCEDURE: Under general anesthesia, the patient was prepped and draped in a sterile field. Timeout procedure was carried out as per protocol. The old incision was opened. Upon entering the abdomen, there was some clear peritoneal fluid, but no bilious fluid and no purulent fluid. The stomach was dilated. A nasogastric tube was positioned in the stomach. The small bowel was dilated from the proximal jejunum down to the ileosigmoid anastomosis. The small bowel was dilated and slightly flaccid, but was quite viable with good pulsations and the anastomosis was fully intact. The opening was widely patent. Rectum was dilated, but was otherwise unremarkable. Irrigation was carried out. A drain was placed to assist with removal of the third space fluid that was going to accumulate. There was no concern about a potential leak at this time, since he was 8 days post-procedure. Irrigation was carried out. The peritoneum and fascia was closed with running #1 Prolene. Subcutaneous tissue was closed with 2-0 Monocryl. Skin was closed with nicholas. The drain was secured with 2-0 nylon. Tegaderm dressing was placed. The patient tolerated the procedure well. He was awakened uneventfully and transferred to the postanesthetic care unit in satisfactory condition. LCS:amanda Job ID: [id number] Doc ID: [id number] Laurel Beckford M.D.
--- NOTE | 2021-05-19 15:41 | Discharge Summary ---
DATE OF ADMISSION: 04/04/2021 DATE OF DISCHARGE: 04/19/2021 DATE OF ADMISSION: 04/04/2021 DATE OF : 04/19/2021 FINAL DIAGNOSES: 1. Cecal volvulus with colonic obstruction. 2. Post-procedural anemia. 3. Chronic pseudo-obstruction with ileus. 4. Atrial fibrillation with rapid ventricular response. 5. Acute occipital infarct with paresis. SPECIAL PROCEDURE: 1. Subtotal colectomy with ileorectal anastomosis on 04/04/2021. 2. Exploratory laparotomy on 04/12/2021. 3. Placement of PICC line on 04/13/2021. DISPOSITION: Patient was placed on comfort care on 04/17/2021 and at 1900 hours on 04/19/2021. SUMMARY: An 89-year-old male who presented to the emergency room with acute abdominal distention and nausea and vomiting. Examination revealed a massively dilated abdomen and CT showed cecal volvulus with colonic obstruction and a massively dilated cecum. Patient was with his son-in-law. They were counseled for emergency laparotomy with right colectomy. He was explored and had massive dilation of right colon, transverse colon, descending, and sigmoid colon. A subtotal colectomy with ileorectal anastomosis was carried out uneventfully. The colon was viable but all of his bowel was dilated, even down to the rectum. He was treated with nasogastric decompression and IV fluids. Reglan was added on 04/08/2021. After the addition of Reglan, he started having flatus and nasogastric tube was discontinued and he was started on clear liquids. On 04/10/2021, he was noted to have dilation of his abdomen, even though he was not putting out any significant output through his nasogastric tube. Small bowel follow-through was done to evaluate the anastomosis and the small bowel follow-through was normal without any evidence of contrast leak. He had multiple bowel movements thereafter. In spite of this, he still had some dilation of his colon. Nasogastric tube was re-placed and the patient was monitored. Followup x-rays on 04/11/2021 did not show any contrast leak with near total clearing of all of his contrast. On 04/12/2021, radiologist was very convinced that he had more free air and that he had an anastomotic leak. I discussed this with the family, and a laparotomy was done with no abnormal findings. He did have a significant amount of clear peritoneal fluid which is the same fluid that I was seeing during the first procedure. PICC line was started on 04/13/2021 and TPN was instituted. He was also started on pyridostigmine for pseudo-obstruction. After the institution of pyridostigmine, he had multiple bowel movements. He did well for the next 2 days. However, on 04/16/2021 he developed increasing shortness of breath and had acute onset of atrial fibrillation with a rapid ventricular response and evidence of congestive heart failure. The atrial fibrillation was treated and his pulse rate was controlled. On the evening of 04/16/2021, it was noted that he had no significant right-sided movement. He was also having worsening respirations. CT of the brain was done, and he was noted to have a major occipital acute infarct. Discussion with the family was carried out, and it was their plan that no further treatment be done since the outcome would be very grim. Patient was placed on comfort care at the family's request. He gradually deteriorated and at 1900 hours on 04/19/2021. Family members were able to see him during this time and were accepting of his demise. LCS:amanda Job ID: [id number] Doc ID: [id number] Laurel Beckford M.D.
--- NOTE | 2021-05-19 16:02 | Operative Note ---
DATE OF OPERATION: 04/04/2021 PREOPERATIVE DIAGNOSES: Chronic colonic pseudo-obstruction with right colon and transverse colon volvulus. POSTOPERATIVE DIAGNOSES: Colonic pseudo-obstruction with right colon and transverse colon volvulus. PROCEDURE: Subtotal colectomy with ileosigmoid anastomosis. SURGEON: Laurel Beckford M.D. FINDINGS: Dilated colon from cecum to the distal sigmoid colon with volvulus involving the right colon, transverse colon, and descending colon with a mild dilation of the distal sigmoid and rectum. DESCRIPTION OF PROCEDURE: Under general anesthesia, the patient's abdomen was prepped and draped in a sterile field. The abdomen was significantly dilated. A midline incision was made and upon entering the abdomen, a massively enlarged colon was encountered. The severe dilation extended from the cecum all the way down to the rectum, with the most severe distention involving the right colon, transverse colon, and sigmoid colon. There was a volvulus of the right colon and the transverse colon with obstruction. The colon was paper thin with no peristalsis noted. It was almost flaccid. It was viable; however. After the colon was removed from the peritoneal cavity, it was inspected and it was felt that the best treatment for this would be a subtotal colectomy since he had a chronic progressive colonic pseudo-obstruction. There was some dilation of the small bowel, but it was not known if this was due to back pressure from the nonfunctioning colon or if this was primary. It was elected to do a subtotal colectomy. The right colon was very floppy and was easier to mobilize. The terminal ileum was dissected and was divided using Contour stapler. The mesocolon was extremely thin and elongated. It was transected using the [employer] electrocautery device. The mesentery to the right colon and transverse colon were dissected. The gastrocolic omentum was divided and the transverse colon was then mobilized and the mesocolon was divided using the [employer] cautery device. The descending and proximal sigmoid colon was also divided in a similar manner. In the distal rectum, the rectum was transected using the Contour stapler. The specimen was passed off. There was good vascularity to the sigmoid colon, and it was felt that an end-to-side anastomosis would be adequate for him without placing a colostomy. The end of the ileum was stapled to the end of the sigmoid using a HANNY 55 stapler. The residual opening was closed with a TA 60 stapler. The anastomosis was then reinforced using running 2-0 Prolene. The mesenteric defect was closed with interrupted silk. Irrigation was carried out. The bowel was inspected. Nasogastric tube was positioned in the stomach. Sponge, needle, instrument, and blade counts were verified as correct. The fascia and peritoneum were closed with running #1 Prolene. Skin was closed with nicholas. The patient tolerated the procedure well. He was awakened and transferred to the postanesthetic care unit in satisfactory condition. LCS:amanda Job ID: [id number] Doc ID: [id number] Laurel Beckford M.D.
== END 2021-04-19 19:00 | disposition expired | DRG 329 ==
LOC: ED 10:45 → SUR 16:00 → MEDSUR 19:44 → ICU 04-16 00:35 → MEDSUR 04-16 16:01
PROVIDERS: ADMIT Family Medicine Adult Medicine; ATTEND Family Medicine Adult Medicine